=== PATIENT | female | born 1945 | race Caucasian/White ===

== ENCOUNTER 2017-02-24 09:44 | Emergency (ER) | payer MEDICARE, OTHER ==
--- NOTE | 2017-02-24 10:04 | EDM.PDOC ---
ED HPI GENERAL MEDICAL PROBLEM - General Chief Complaint: Upper Extremity Injury/Pain Stated Complaint: [id number] DID SOMETHING TO ARM Time Seen by Provider: 02/24/17 09:58 Source of Information: Reports: Patient History Limitations: Reports: No Limitations - History of Present Illness INITIAL COMMENTS - FREE TEXT/NARRATIVE: 71 yo white female c/o left elbow and left forearm pain since last night when she was placing a tote on shelf that fell forward onto forearm @ 5pm yesterday. Pt. states she applied icyhot to area. Onset: Today Onset Date: 02/23/17 Duration: Hour(s): Location: Reports: Upper Extremity, Left (elbow) Quality: Reports: Ache Severity: Mild Improves with: Reports: Rest Worsens with: Reports: Movement Context: Reports: Trauma Associated Symptoms: Reports: No Other Symptoms - Related Data Allergies Allergy/AdvReac Type Severity Reaction Status Date / Time No Known Allergies Allergy Verified 02/24/17 09:51 Home Meds: Home Meds Acetaminophen [Tylenol Extra Strength] 500 mg PO BID 02/24/17 [History] Amiodarone [Cordarone] 200 mg PO DAILY 02/24/17 [History] Atenolol 75 mg PO DAILY 02/24/17 [History] Budesonide/Formoterol Fumarate [Symbicort 80-4.5 Mcg Inhaler] 1 puff INH DAILY 02/24/17 [History] Cholecalciferol (Vitamin D3) [Vitamin D3] 2,000 unit PO BID 02/24/17 [History] Diltiazem HCl [Cartia Xt] 120 mg PO DAILY 02/24/17 [History] Fish Oil/[place]-3 Fatty Acids [Fish Oil 1,000 MG] 1,400 mg PO DAILY 02/24/17 [ History] Fluticasone Propionate [Flonase] 50 mcg IVET DAILY 02/24/17 [History] Furosemide 20 mg PO DAILY 02/24/17 [History] Losartan [Cozaar] 50 mg PO DAILY 02/24/17 [History] Multivitamin [Daily Multiple Vitamin] 1 tab PO DAILY 02/24/17 [History] Potassium Chloride [Klor-Con M20] 20 meq PO DAILY 02/24/17 [History] Rivaroxaban [Xarelto] 20 mg PO DAILY 02/24/17 [History] Spironolactone [Aldactone] 25 mg PO DAILY 02/24/17 [History] atorvaSTATin [Lipitor] 20 mg PO DAILY 02/24/17 [History] Social & Family History - Tobacco Use Smoking Status *Q: Never Smoker - Caffeine Use Caffeine Use: Reports: Coffee, Tea - Recreational Drug Use Recreational Drug Use: No Review of Systems - Review of Systems Review Of Systems: See Below Constitutional: Reports: No Symptoms Eyes: Reports: No Symptoms Ears: Reports: No Symptoms Nose: Reports: No Symptoms Mouth/Throat: Reports: No Symptoms Respiratory: Reports: No Symptoms Cardiovascular: Reports: No Symptoms GI/Abdominal: Reports: No Symptoms Genitourinary: Reports: No Symptoms Musculoskeletal: Reports: Muscle Pain (left forearm) Skin: Reports: No Symptoms Neurological: Reports: No Symptoms Psychiatric: Reports: No Symptoms ED EXAM, GENERAL - Physical Exam Exam: See Below Exam Limited By: No Limitations General Appearance: Alert, WD/WN, No Apparent Distress Eye Exam: Bilateral Eye: PERRL Ears: Normal External Exam Nose: Normal Inspection Throat/Mouth: Normal Inspection Head: Atraumatic Neck: Normal Inspection Respiratory/Chest: No Respiratory Distress Cardiovascular: Normal Peripheral Pulses Peripheral Pulses: 2+: Radial (L), Radial (R) Back Exam: Normal Inspection Extremities: Normal Inspection, Normal Range of Motion, Other (left proximal ventral forearm muscle tenderness w/o swelling and no bruising) Neurological: Alert, Oriented, CN II-XII Intact, Normal Cognition Psychiatric: Normal Affect Skin Exam: Warm, Dry Lymphatic: No Adenopathy Course - Vital Signs Last Recorded V/S: Last Vital Signs Temp 35.3 C 02/24/17 09:51 Pulse 60 02/24/17 09:51 Resp 18 02/24/17 09:51 BP 122/56 L 02/24/17 09:51 Pulse Ox 96 02/24/17 09:51 - Orders/Labs/Meds Orders: Active Orders 24 hr Category Date Time Status Elbow 2V Lt [CR] Urgent Exams 02/24/17 09:58 Taken Departure - Departure Time of Disposition: 10:17 Disposition: Home, Self-Care 01 Condition: Good Clinical Impression: Muscle contusion - Discharge Information Forms: ED Department Discharge Additional Instructions: Rest Apply Ice Pack to area TID X 15 mins. For Pain: Use otc TYLENOL ES 500mg QID as needed OR ADVIL 400mg TID w/ food F/U w/ PCP - My Orders Last 24 Hours: My Active Orders 02/24/17 09:58 Elbow 2V Lt [CR] Urgent - Assessment/Plan Last 24 Hours: My Active Orders 02/24/17 09:58 Elbow 2V Lt [CR] Urgent
[2017-02-24] MEDS ORDERED: cloNIDine 0.1 MG Tab PO ONE (10:21)
== END 2017-02-24 10:32 | disposition home or self-care (01) ==
LOC: DL.ED 09:44
DX: S50.12XA Contusion of left forearm, initial encounter (principal); Z79.899 Other long term (current) drug therapy; W20.8XXA Other cause of strike by thrown, projected or falling object, initial encounter
CPT/HCPCS: 73070-LT; 99283

== ENCOUNTER 2017-08-16 12:11 | Inpatient (IN) | payer MEDICARE, OTHER ==
[2017-08-16] MEDS ORDERED: Acetaminophen 500 MG Tab PO PRN (12:51)
[2017-08-16] MEDS ORDERED: Albuterol/Ipratropium 3.0-0.5 MG/3 ML Neb Soln NEB PRN (12:59)
--- NOTE | 2017-08-16 13:02 | PCM.HP ---
H&P History of Present Illness - General Date of Service: 08/16/17 Source of Information: Patient - History of Present Illness Initial Comments - Free Text/Narative: 72 yo with ho cad, diastolic chf, dm, copd presented with cough, subjective fever, sick contact: daughter no associated cp symptoms started 3 days TABLE [employer] went to see PMD - noted to have infiltrate has mild edema, not worse lately - Related Data Allergies/Adverse Reactions: Allergies Allergy/AdvReac Type Severity Reaction Status Date / Time No Known Allergies Allergy Verified 08/16/17 12:25 Home Medications: Home Meds Acetaminophen [Tylenol Extra Strength] 500 mg PO BID PRN 02/24/17 [History] Amiodarone [Cordarone] 200 mg PO DAILY 02/24/17 [History] Budesonide/Formoterol Fumarate [Symbicort 80-4.5 Mcg Inhaler] 2 puff INH BID [History] Cholecalciferol (Vitamin D3) [Vitamin D3] 2,000 unit PO BID 02/24/17 [History] Diltiazem HCl [Cartia Xt] 120 mg PO DAILY 02/24/17 [History] Fish Oil/[place]-3 Fatty Acids [Fish Oil 1,000 MG] 1,000 mg PO DAILY 02/24/17 [ History] Fluticasone Propionate [Flonase] 50 mcg IVET DAILY 02/24/17 [History] Losartan [Cozaar] 50 mg PO DAILY 02/24/17 [History] Multivitamin [Daily Multiple Vitamin] 1 tab PO DAILY 02/24/17 [History] RX: Atenolol 75 mg PO DAILY 02/24/17 [History] RX: Furosemide 20 mg PO DAILY 02/24/17 [History] RX: Potassium Chloride [Klor-Con M20] 20 meq PO DAILY 02/24/17 [History] RX: Spironolactone [Aldactone] 25 mg PO DAILY 02/24/17 [History] RX: atorvaSTATin [Lipitor] 20 mg PO DAILY 02/24/17 [History] Rivaroxaban [Xarelto] 20 mg PO DAILY 02/24/17 [History] Albuterol [Proair HFA] 2 puff INH DAILY PRN 08/16/17 [History] Codeine/Promethazine [Phenergan with Codeine] 5 ml PO Q6HR PRN 08/16/17 [History ] RX: Loratadine 10 mg PO DAILY 08/16/17 [History] Past Medical History HEENT History: Reports: Impaired Vision Cardiovascular History: Reports: Heart Failure, High Cholesterol, Hypertension Respiratory History: Reports: None Genitourinary History: Reports: None [employer] History: Reports: None Neurological History: Reports: None Psychiatric History: Reports: None Endocrine/Metabolic History: Reports: None Hematologic History: Reports: None Immunologic History: Reports: None Oncologic (Cancer) History: Reports: None Dermatologic History: Reports: None Social & Family History - Tobacco Use Smoking Status *Q: Never Smoker - Caffeine Use Caffeine Use: Reports: Coffee, Tea - Recreational Drug Use Recreational Drug Use: No H&P Review of Systems - Review of Systems: Review Of Systems: See Below (subjective) General: Reports: Fever HEENT: Reports: Sore Throat Pulmonary: Reports: Shortness of Breath, Cough. Denies: Wheezing, Sputum Cardiovascular: Denies: Chest Pain Gastrointestinal: Denies: Abdominal Pain Psychiatric: Denies: Confusion Exam - Exam Exam: See Below - Exam Quality Assessment: No: Supplemental Oxygen General: Alert, Oriented Neck: Supple Lungs: Normal Respiratory Effort, Crackles (basilar) Cardiovascular: Regular Rate, Regular Rhythm GI/Abdominal Exam: Normal Bowel Sounds, Soft, Non-Tender Extremities: Pedal Edema (1+ b/l) Skin: Warm, Dry Neuro Extensive - Mental Status: Alert, Oriented x3, Normal Mood/Affect Psychiatric: Alert, Normal Affect, Normal Mood - Patient Data Lab Results Last 24 hrs: Results for MALU RODRIGUEZ Danna ( ) as of 08/16/2017 12:53 Ref. Range 07/31/2017 12:01 08/16/2017 09:57 08/16/2017 09:58 BUN Latest Ref Range: 7 - 18 mg/dL 23 (H) 13 Sodium Latest Ref Range: 136 - 145 mmol/L 140 138 Potassium Latest Ref Range: 3.5 - 5.1 mmol/L 4.2 4.2 Chloride Latest Ref Range: 98 - 107 mmol/L 100 98 CO2 Latest Ref Range: 21.0 - 32.0 mmol/L 29.2 28.8 SERUM GLUCOSE Latest Ref Range: 70 - 99 mg/dL 154 (H) 226 (H) Creatinine Latest Ref Range: 0.6 - 1.0 mg/dL 1.4 (H) 1.7 (H) Calcium Latest Ref Range: 8.5 - 10.1 mg/dL 9.9 9.7 ANION GAP Latest Ref Range: 5.0 - 13.0 mmol/L 10.8 11.2 GFR Calculated Latest Units: mL/min/1.73 sq m 37 29 Results for MALU RODRIGUEZ ( ) as of 08/16/2017 12:53 Ref. Range 08/16/2017 09:58 WBC Latest Ref Range: 3.60 - 11.00 K/uL 14.78 (H) RBC Latest Ref Range: 3.80 - 5.20 M/uL 4.42 Hemoglobin Latest Ref Range: 12.0 - 16.0 g/dL 14.2 Hematocrit Latest Ref Range: 40.0 - 52.0 % 42.1 MCV Latest Ref Range: 80.0 - 100.0 fL 95.2 MCH Latest Ref Range: 26.0 - 34.0 pg 32.1 MCHC Latest Ref Range: 32.0 - 36.0 g/dL 33.7 RDW Latest Ref Range: 37.0 - 50.0 fL 45.6 Platelets Latest Ref Range: 150 - 440 K/L 208 MPV Latest Ref Range: 8.0 - 13.0 fL 9.9 Imaging Impressions Last 24 hrs: from [facility] cxr 08/16/17 IMPRESSION: 1. Heart size is borderline with Central vessels at the upper normal. 2. Basilar markings are somewhat difficult to assess. There are prominent I believe slightly increased when compared with previous study. I suspect there may be some minimal developing basilar infiltrate superimposing chronic fibrotic basilar changes. Differential would include congestion but I feel more likely minimal infiltrate. I would recommend treatment and short-term follow-up. 3. Pulmonary nodule within the RIGHT upper lobe stable and unchanged 4. Aortic ASVD and tortuosity 5. Underlying hyperinflation. 6. Degenerative changes and dextroscoliosis of the dorsal spine. Problem List Initiated/Reviewed/Updated: Yes Orders Last 24hrs: Active Orders 24 hr Category Date Time Status Glucose [Blood Glucose Check, Bedside] [RC] QIDACANDBED Care 08/16/17 12:58 Ordered RT Aerosol Therapy [RC] ASDIRECTED Care 08/16/17 12:59 Ordered BASIC METABOLIC PANEL,BMP [CHEM] AM Lab 04/20/18 05:15 Ordered CBC WITH AUTO DIFF [HEME] AM Lab 08/17/17 05:15 Ordered CULTURE BLOOD [BC] Stat Lab 08/16/17 12:58 Ordered CULTURE BLOOD [BC] Stat Lab 08/16/17 12:58 Ordered CULTURE SPUTUM + SMEAR [RM] Routine Lab 08/16/17 12:59 Ordered Acetaminophen [Tylenol Extra Strength] Med 08/16/17 12:51 Ordered 500 mg PO Q4H PRN Albuterol/Ipratropium [DuoNeb 3.0-0.5 MG/3 ML] Med 08/16/17 12:59 Ordered 3 ml NEB Q6HRRT PRN Amiodarone [Cordarone] Med 08/17/17 09:00 Ordered 200 mg PO DAILY Atenolol [Tenormin] Med 08/17/17 09:00 Ordered 75 mg PO DAILY Azithromycin [Zithromax] 500 mg Med 08/16/17 13:00 Ordered Sodium Chloride 0.9% [Normal Saline] 250 ml IV Q24H Budesonide/Formoterol Fumarate [Symbicort 80-4.5 Mcg Med 08/16/17 21:00 Ordered Inhaler] 2 puff INH BID Cholecalciferol (Vitamin D3) [Vitamin D3] Med 08/16/17 21:00 Ordered 2,000 unit PO BID Codeine/Promethazine [Phenergan with Codeine] Med 08/16/17 12:51 Ordered 5 ml PO Q6HR PRN Diltiazem [Cardizem CD] Med 08/17/17 09:00 Ordered 120 mg PO DAILY Fish Oil/[place]-3 Fatty Acids [Fish Oil 1,000 MG] Med 08/17/17 09:00 Ordered 1,000 mg PO DAILY Fluticasone Propionate [Flonase] Med 08/17/17 09:00 Ordered 0.0001 gm IVET DAILY Insulin Aspart [NovoLOG] Med 08/16/17 17:00 Ordered See Protocol SUBCUT TIDAC Loratadine [Claritin] Med 08/17/17 09:00 Ordered 10 mg PO DAILY Losartan [Cozaar] Med 08/17/17 09:00 Ordered 50 mg PO DAILY Multivitamin [Daily Multiple Vitamin] Med 08/17/17 09:00 Ordered 1 tab PO DAILY Potassium Chloride [Klor-Con M20] Med 08/17/17 09:00 Ordered 20 meq PO DAILY Rivaroxaban [Xarelto] Med 08/17/17 09:00 Ordered 20 mg PO DAILY Spironolactone [Aldactone] Med 08/17/17 09:00 Ordered 25 mg PO DAILY atorvaSTATin [Lipitor] Med 08/17/17 09:00 Ordered 20 mg PO DAILY cefTRIAXone [Rocephin] 1,000 mg Med 08/16/17 13:00 Ordered Sodium Chloride 0.9% [Normal Saline] 100 ml IV Q24H Blood Culture x2 Reflex Set [OM.PC] Stat Oth 08/16/17 12:58 Ordered Medication Orders Acetaminophen (Tylenol Extra Strength) 500 mg PO Q4H PRN PRN Reason: Pain, fever Albuterol/Ipratropium (Duoneb 3.0-0.5 Mg/3 Ml) 3 ml NEB Q6HRRT PRN PRN Reason: sob Amiodarone HCl (Cordarone) 200 mg PO DAILY [facility] Atenolol (Tenormin) 75 mg PO DAILY [facility] Atorvastatin Calcium (Lipitor) 20 mg PO DAILY [facility] Diltiazem HCl (Cardizem Cd) 120 mg PO DAILY [facility] Fluticasone Propionate (Flonase) 0.0001 gm IVET DAILY [facility] Azithromycin 500 mg/ Sodium (Chloride) 250 mls @ 250 mls/hr IV Q24H [facility] Ceftriaxone Sodium 1,000 mg/ (Sodium Chloride) 100 mls @ 200 mls/hr IV Q24H [facility] Insulin Aspart (Novolog) 0 unit SUBCUT TIDAC [facility]; Protocol Loratadine (Claritin) 10 mg PO DAILY [facility] Losartan Potassium (Cozaar) 50 mg PO DAILY [facility] Non-Formulary Medication (Budesonide/Formoterol Fumarate [Symbicort 80-4.5 Mcg Inhaler]) 2 puff INH BID [facility] Non-Formulary Medication (Cholecalciferol (Vitamin D3) [Vitamin D3]) 2,000 unit PO BID [facility] Non-Formulary Medication (Fish Oil/[place]-3 Fatty Acids [Fish Oil 1,000 Mg]) 1, 000 mg PO DAILY [facility] Non-Formulary Medication (Multivitamin [Daily Multiple Vitamin]) 1 tab PO DAILY [facility] Non-Formulary Medication (Potassium Chloride [Klor-Con M20]) 20 meq PO DAILY [facility] Non-Formulary Medication (Rivaroxaban [Xarelto]) 20 mg PO DAILY [facility] Promethazine HCl/Codeine (Phenergan With Codeine) 5 ml PO Q6HR PRN PRN Reason: Cough Spironolactone (Aldactone) 25 mg PO DAILY [facility] Assessment/Plan Comment:: 1. cough, fever, leukocytosis R. LL pneumonia will obtain BC, sputum cx start azithro, rocephin 2. Acute exacerbation of diastolic chf last echo in 2016 There is mild to moderate concentric left ventricular hypertrophy. Ejection Fraction = 55-60%. The left atrium is moderately dilated. The right atrium is moderately dilated. There is mild to moderate mitral regurgitation. There is mild tricuspid regurgitation. Right ventricular systolic pressure is elevated at 40-50mmHg. will increase lasix to IV BID for a few doses follow elytes and renal fx. 3. KRISTINE with CKD III follow with increased diuretics 4. Afib appears in NS cont amiodarone cont anticoagulation with Xarelto 5. COPD no apparent exacerbation cont symbicort duoneb prn 6. DVT prophylaxis with Xarelto
[2017-08-16] MEDS ORDERED: Zolpidem 5 MG Tab PO PRN (13:36)
[2017-08-16] MEDS: Furosemide 20 MG/2 ML VIAL IVPUSH SCH (14:02)
[2017-08-16] MEDS: Azithromycin 500 MG in Sodium Chloride 0.9% 250 ML IV SCH (14:02)
[2017-08-16] MEDS: cefTRIAXone 1 GM Vial IVPUSH SCH (14:02)
[2017-08-16] MEDS: Codeine/Promethazine 10-6.25 MG/5 ML Syrup 5 ML UD Cup PO PRN ×2 (14:03→23:48)
[2017-08-16] MEDS: Sodium Chloride 0.9% 10 ML Syringe FLUSH PRN ×2 (14:03→20:53)
[2017-08-16] MEDS: Insulin Aspart 100 Units/ML 3 ML Pen SUBCUT SCH (17:46)
[2017-08-16] MEDS: SYMBICORT INH SCH (20:43)
[2017-08-16] MEDS: CHOLECALCIFEROL 2000 UNIT PO SCH (20:44)
[2017-08-16] MEDS: Rivaroxaban 10 MG Tab PO SCH (21:43)
[2017-08-16] MEDS: atorvaSTATin 20 MG Tab PO SCH (21:43)
[2017-08-17 06:42] LABS: ANION GAP 12.4
[2017-08-17] MEDS: SYMBICORT INH SCH ×2 (08:50→17:33)
[2017-08-17] MEDS: FISH OIL PO SCH (08:50)
[2017-08-17] MEDS: OMEGA PO SCH (08:50)
[2017-08-17] MEDS: CHOLECALCIFEROL 2000 UNIT PO SCH ×2 (08:50→20:52)
[2017-08-17] MEDS: FATTY ACIDS PO SCH (08:50)
[2017-08-17] MEDS: Spironolactone 25 MG Tab PO SCH (08:51)
[2017-08-17] MEDS: Potassium Chloride 10 MEQ Tab.ER PO SCH (08:51)
[2017-08-17] MEDS: Losartan 50 MG Tab PO SCH (08:51)
[2017-08-17] MEDS: Furosemide 20 MG/2 ML VIAL IVPUSH SCH ×2 (08:51→14:13)
[2017-08-17] MEDS: Multivitamins,Therapeutic Tab PO SCH (08:51)
[2017-08-17] MEDS: Loratadine 10 MG Tab PO SCH (08:51)
[2017-08-17] MEDS: Amiodarone 200 MG Tab PO SCH (08:51)
[2017-08-17] MEDS: Fluticasone Propionate Nasal Spray 16 GM Bottle NAS SCH (08:52)
[2017-08-17] MEDS: Insulin Aspart 100 Units/ML 3 ML Pen SUBCUT SCH (08:54)
--- NOTE | 2017-08-17 10:05 | PCM.PN ---
- General Info Date of Service: 08/17/17 Subjective Update: Feeling better, voice is still not normal, Mild shortness of breath only. Had low-grade temperature overnight. Still on oxygen. On fluid restriction. Symptoms started prior to admission. They are improving. Still coughing but no sputum production. Functional Status: Reports: Pain Controlled - Review of Systems General: Reports: Fever (Low-grade) Pulmonary: Reports: Shortness of Breath (Mild), Cough (Nonproductive) Cardiovascular: Denies: Chest Pain Gastrointestinal: Denies: Abdominal Pain Genitourinary: Denies: Dysuria Neurological: Denies: Confusion Psychiatric: Denies: Depression - Patient Data Vitals - Most Recent: Last Vital Signs Temp 36.8 C 08/17/17 07:00 Pulse 55 L 08/17/17 07:00 Resp 16 08/17/17 07:00 BP 108/71 08/17/17 08:51 Pulse Ox 94 L 08/17/17 07:00 Weight - Most Recent: 90.718 kg I&O - Last 24 Hours: Intake & Output 08/16/17 08/17/17 08/17/17 22:59 06:59 14:59 Intake Total 250 300 240 Output Total 100 Balance 250 200 240 Lab Results Last 24 Hours: Laboratory Results - last 24 hr 08/16/17 08/17/17 08/17/17 Range/Units 16:52 05:35 05:35 WBC 8.2 (5.0-10.0) 10^3/uL RBC 3.97 L (4.2-5.4) 10^6/uL Hgb 12.8 (12.0-16.0) g/dL Hct 38.8 (37.0-47.0) % MCV 97.7 (80-100) fL MCH 32.2 (27.0-34.0) pg MCHC 33.0 (33.0-35.0) g/dL Plt Count 140 L (150-450) 10^3/uL Neut % (Auto) 64.0 (42.2-75.2) % Lymph % (Auto) 21.6 (20.5-50.1) % [place] % (Auto) 11.6 H (2-8) % Eos % (Auto) 2.6 (1.0-3.0) % Baso % (Auto) 0.2 (0.0-1.0) % Sodium 138 (135-145) mmol/L Potassium 3.4 L (3.6-5.0) mmol/L Chloride 100 L (101-111) mmol/L Carbon Dioxide 29.0 (21.0-31.0) mmol/L Anion Gap 12.4 BUN 19 H (7-18) mg/dL Creatinine 1.3 (0.6-1.3) mg/dL Est Cr Clr Drug Dosing 37.48 mL/min Estimated GFR (MDRD) 40 Glucose 126 H (74-105) mg/dL POC Glucose 118 H (83-110) mg/dl Calcium 9.0 (8.4-10.2) mg/dl Med Orders - Current: Current Medications Acetaminophen (Tylenol Extra Strength) 500 mg PO Q4H PRN PRN Reason: Pain, fever Albuterol/Ipratropium (Duoneb 3.0-0.5 Mg/3 Ml) 3 ml NEB Q6HRRT PRN PRN Reason: sob Amiodarone HCl (Cordarone) 200 mg PO DAILY [facility] Last Admin: 08/17/17 08:51 Dose: 200 mg Atenolol (Tenormin) 75 mg PO DAILY [facility] Atorvastatin Calcium (Lipitor) 20 mg PO BEDTIME [facility] Last Admin: 08/16/17 21:43 Dose: 20 mg Ceftriaxone Sodium (Rocephin) 1 gm IVPUSH Q24H [facility] Last Admin: 08/16/17 14:02 Dose: 1 gm Diltiazem HCl (Cardizem Cd) 120 mg PO DAILY [facility] Fluticasone Propionate (Flonase) 0 gm IVET DAILY [facility] Last Admin: 08/17/17 08:52 Dose: 2 spray Furosemide (Lasix) 20 mg IVPUSH BIDDIURETIC [facility] Last Admin: 08/17/17 08:51 Dose: 20 mg Azithromycin 500 mg/ Sodium (Chloride) 250 mls @ 250 mls/hr IV Q24H [facility] Last Infusion: 08/16/17 15:48 Dose: Infused Loratadine (Claritin) 10 mg PO DAILY [facility] Last Admin: 08/17/17 08:51 Dose: 10 mg Losartan Potassium (Cozaar) 50 mg PO DAILY [facility] Last Admin: 08/17/17 08:51 Dose: 50 mg Multivitamins (Thera) 1 each PO DAILY [facility] Last Admin: 08/17/17 08:51 Dose: 1 each Nf Symbicort 80-4.5 (Mcg InhOwn Med) 0 puff INH BIDRT [facility] Last Admin: 08/17/17 08:50 Dose: 2 puff Nf Cholecalciferol ( Vitamin D3)2,000 UnitOwn Med 0 unit PO BID [facility] Last Admin: 08/17/17 08:50 Dose: 1 unit Nf Fish Oil/[place]-3 Fatty Acids 1,200 Mg Own Med 0 mg PO DAILY [facility] Last Admin: 08/17/17 08:50 Dose: 1 mg Potassium Chloride (Klor-Con 10) 20 meq PO DAILY@0800 [facility] Last Admin: 08/17/17 08:51 Dose: 20 meq Potassium Chloride (Klor-Con 10) 20 meq PO ONETIME ONE Stop: 08/17/17 16:01 Promethazine HCl/Codeine (Phenergan With Codeine) 5 ml PO Q6HR PRN PRN Reason: Cough Last Admin: 08/16/17 23:48 Dose: 5 ml Rivaroxaban (Xarelto) 20 mg PO BEDTIME [facility] Last Admin: 08/16/17 21:43 Dose: 20 mg Sodium Chloride (Saline Flush) 10 ml FLUSH ASDIRECTED PRN PRN Reason: Keep Vein Open Last Admin: 08/16/17 20:53 Dose: 10 ml Spironolactone (Aldactone) 25 mg PO DAILY [facility] Last Admin: 08/17/17 08:51 Dose: 25 mg Zolpidem Tartrate (Ambien) 5 mg PO BEDTIME PRN PRN Reason: Sleep Discontinued Medications Insulin Aspart (Novolog) 0 unit SUBCUT TIDAC [facility]; Protocol Last Admin: 08/17/17 08:54 Dose: Not Given - Exam Quality Assessment: Supplemental Oxygen General: Alert, Oriented HEENT: EOMI Neck: Supple Lungs: Clear to Auscultation, Normal Respiratory Effort, Rhonchi (Basilar) Cardiovascular: Regular Rate, Regular Rhythm GI/Abdominal Exam: Normal Bowel Sounds, Soft, Non-Tender Extremities: No Pedal Edema - Problem List Review Problem List Initiated/Reviewed/Updated: Yes - My Orders Last 24 Hours: My Active Orders 08/16/17 12:51 Acetaminophen [Tylenol Extra Strength] 500 mg PO Q4H PRN Codeine/Promethazine [Phenergan with Codeine] 5 ml PO Q6HR PRN 08/16/17 12:58 Blood Culture x2 Reflex Set [OM.PC] Stat 08/16/17 12:59 RT Aerosol Therapy [RC] CULTURE SPUTUM + SMEAR [RM] Routine Albuterol/Ipratropium [DuoNeb 3.0-0.5 MG/3 ML] 3 ml NEB Q6HRRT PRN 08/16/17 13:35 CULTURE BLOOD [BC] Stat 08/16/17 13:36 Patient Status [ADT] Routine Oxygen Therapy [RC] PRN Up With Assistance [RC] ASDIRECTED VTE/DVT Education [RC] PER UNIT ROUTINE Vital Signs [RC] 03,07,11,15,, Sodium Chloride 0.9% [Saline Flush] 10 ml FLUSH ASDIRECTED PRN Zolpidem [Ambien] 5 mg PO BEDTIME PRN Peripheral IV Insertion Adult [OM.PC] Routine Saline Lock Insert [OM.PC] Routine Resuscitation Status Routine 08/16/17 13:37 Antiembolic Hose [OM.PC] Per Unit Routine 08/16/17 13:38 Peripheral IV Care [RC] 08,20 08/16/17 13:40 CULTURE BLOOD [BC] Stat 08/16/17 14:00 Azithromycin [Zithromax] 500 mg Sodium Chloride 0.9% [Normal Saline] 250 ml IV Q24H Furosemide [Lasix] 20 mg IVPUSH BIDDIURETIC cefTRIAXone [Rocephin] 1 gm IVPUSH Q24H 08/16/17 21:00 Budesonide/Formoterol Fumarate [Symbicort 80-4.5 Mcg Inhaler] 0 puff INH BIDRT Cholecalciferol (Vitamin D3) [Vitamin D3] 0 unit PO BID 08/16/17 21:40 Rivaroxaban [Xarelto] 20 mg PO BEDTIME atorvaSTATin [Lipitor] 20 mg PO BEDTIME 08/16/17 Dinner Regular Diet [DIET] 08/17/17 08:00 Potassium Chloride [Klor-Con 10] 20 meq PO DAILY@0800 08/17/17 09:00 Amiodarone [Cordarone] 200 mg PO DAILY Atenolol [Tenormin] 75 mg PO DAILY Diltiazem [Cardizem CD] 120 mg PO DAILY Fish Oil/[place]-3 Fatty Acids [Fish Oil 1,000 MG] 0 mg PO DAILY Fluticasone Propionate [Flonase] 0 gm IVET DAILY Loratadine [Claritin] 10 mg PO DAILY Losartan [Cozaar] 50 mg PO DAILY Multivitamins,Therapeutic [Thera] 1 each PO DAILY Spironolactone [Aldactone] 25 mg PO DAILY 08/17/17 16:00 Potassium Chloride [Klor-Con 10] 20 meq PO ONETIME ONE 08/18/17 05:15 BASIC METABOLIC PANEL,BMP [CHEM] AM CBC WITH AUTO DIFF [HEME] AM - Plan Plan:: 1. cough, fever, leukocytosis R. LL pneumonia with acute hypoxemic respiratory failure BCx pending sputum cx: Pending Treat empirically with kalyanithvicky jaffehin 2. Acute exacerbation of diastolic chf last echo in 2015 There is mild to moderate concentric left ventricular hypertrophy. Ejection Fraction = 55-60%. The left atrium is moderately dilated. The right atrium is moderately dilated. There is mild to moderate mitral regurgitation. There is mild tricuspid regurgitation. Right ventricular systolic pressure is elevated at 40-50mmHg. We will continue with increased lasix to IV BID follow elytes and renal fx. 3. KRISTINE with CKD III follow with increased diuretics 4. Afib appears in NS cont amiodarone cont anticoagulation with Xarelto 5. COPD no apparent exacerbation - no wheezing cont symbicort duoneb prn 6. Acute hypoxemic respiratory failure Supplement oxygen as needed We'll try to taper off oxygen 7. DVT prophylaxis with Xarelto Discussed with family
[2017-08-17] MEDS: Diltiazem 120 MG Cap.CD PO SCH (10:38)
[2017-08-17] MEDS: Atenolol 25 MG Tab PO SCH (10:38)
[2017-08-17] MEDS: Codeine/Promethazine 10-6.25 MG/5 ML Syrup 5 ML UD Cup PO PRN (11:03)
[2017-08-17] MEDS: Azithromycin 500 MG in Sodium Chloride 0.9% 250 ML IV SCH (14:13)
[2017-08-17] MEDS: cefTRIAXone 1 GM Vial IVPUSH SCH (14:13)
[2017-08-17] MEDS: Albuterol/Ipratropium 3.0-0.5 MG/3 ML Neb Soln NEB SCH ×2 (15:10→20:56)
[2017-08-17] MEDS ORDERED: Potassium Chloride 10 MEQ Tab.ER PO ONE (16:00)
[2017-08-17] MEDS: atorvaSTATin 20 MG Tab PO SCH (20:53)
[2017-08-17] MEDS: Rivaroxaban 10 MG Tab PO SCH (20:53)
[2017-08-17] MEDS: Sodium Chloride 0.9% 10 ML Syringe FLUSH PRN (21:12)
[2017-08-18] MEDS: Codeine/Promethazine 10-6.25 MG/5 ML Syrup 5 ML UD Cup PO PRN ×3 (00:11→23:11)
[2017-08-18] MEDS: SYMBICORT INH SCH ×2 (06:26→20:18)
[2017-08-18 06:35] LABS: ANION GAP 12.9
[2017-08-18] MEDS: Albuterol/Ipratropium 3.0-0.5 MG/3 ML Neb Soln NEB SCH ×3 (07:11→20:17)
[2017-08-18] MEDS: Diltiazem 120 MG Cap.CD PO SCH (09:01)
[2017-08-18] MEDS: Loratadine 10 MG Tab PO SCH (09:01)
[2017-08-18] MEDS: Amiodarone 200 MG Tab PO SCH (09:01)
[2017-08-18] MEDS: Atenolol 25 MG Tab PO SCH (09:02)
[2017-08-18] MEDS: Spironolactone 25 MG Tab PO SCH (09:02)
[2017-08-18] MEDS: Multivitamins,Therapeutic Tab PO SCH (09:02)
[2017-08-18] MEDS: Losartan 50 MG Tab PO SCH (09:02)
[2017-08-18] MEDS: Potassium Chloride 10 MEQ Tab.ER PO SCH (09:03)
[2017-08-18] MEDS: CHOLECALCIFEROL 2000 UNIT PO SCH ×2 (09:05→21:03)
[2017-08-18] MEDS: Fluticasone Propionate Nasal Spray 16 GM Bottle NAS SCH (09:05)
[2017-08-18] MEDS: FATTY ACIDS PO SCH (09:06)
[2017-08-18] MEDS: OMEGA PO SCH (09:06)
[2017-08-18] MEDS: FISH OIL PO SCH (09:06)
[2017-08-18] MEDS: Furosemide 20 MG/2 ML VIAL IVPUSH SCH (09:07)
--- NOTE | 2017-08-18 10:11 | PCM.PN ---
- General Info Date of Service: 08/18/17 Subjective Update: Feeling better, voice is still not normal, Mild shortness of breath only. off oxygen. On fluid restriction. Symptoms started prior to admission. They are improving. Still coughing but no sputum production. Functional Status: Reports: Pain Controlled, Tolerating Diet - Review of Systems General: Denies: Fever Pulmonary: Reports: Shortness of Breath (Improving) Cardiovascular: Denies: Chest Pain Gastrointestinal: Denies: Abdominal Pain Neurological: Denies: Confusion - Patient Data Vitals - Most Recent: Last Vital Signs Temp 35.9 C 08/18/17 07:00 Pulse 58 L 08/18/17 09:02 Resp 18 08/18/17 07:00 BP 111/49 L 08/18/17 09:02 Pulse Ox 96 08/18/17 07:13 Weight - Most Recent: 90.991 kg I&O - Last 24 Hours: Intake & Output 08/17/17 08/18/17 08/18/17 22:59 06:59 14:59 Intake Total 550 90 Output Total 100 350 Balance 450 -260 Lab Results Last 24 Hours: Laboratory Results - last 24 hr 08/18/17 08/18/17 Range/Units 05:40 05:40 WBC 7.0 (5.0-10.0) 10^3/uL RBC 3.87 L (4.2-5.4) 10^6/uL Hgb 12.3 (12.0-16.0) g/dL Hct 37.8 (37.0-47.0) % MCV 97.7 (80-100) fL MCH 31.8 (27.0-34.0) pg MCHC 32.5 L (33.0-35.0) g/dL Plt Count 147 L (150-450) 10^3/uL Neut % (Auto) 55.7 (42.2-75.2) % Lymph % (Auto) 27.4 (20.5-50.1) % [place] % (Auto) 12.6 H (2-8) % Eos % (Auto) 4.0 H (1.0-3.0) % Baso % (Auto) 0.3 (0.0-1.0) % Sodium 138 (135-145) mmol/L Potassium 3.9 (3.6-5.0) mmol/L Chloride 102 (101-111) mmol/L Carbon Dioxide 27.0 (21.0-31.0) mmol/L Anion Gap 12.9 BUN 24 H (7-18) mg/dL Creatinine 1.4 H (0.6-1.3) mg/dL Est Cr Clr Drug Dosing 34.80 mL/min Estimated GFR (MDRD) 37 Glucose 116 H (74-105) mg/dL Calcium 9.1 (8.4-10.2) mg/dl Joao Results Last 24 Hours: Microbiology 08/17/17 15:25 Gram Stain - Final Sputum - Expectorated 08/16/17 13:40 Aerobic Blood Culture - Preliminary Blood - Venous - Lab Draw NO GROWTH AFTER 1 DAY Anaerobic Blood Culture - Preliminary NO GROWTH AFTER 1 DAY 08/16/17 13:35 Aerobic Blood Culture - Preliminary Blood - Venous NO GROWTH AFTER 1 DAY Anaerobic Blood Culture - Preliminary NO GROWTH AFTER 1 DAY Med Orders - Current: Current Medications Acetaminophen (Tylenol Extra Strength) 500 mg PO Q4H PRN PRN Reason: Pain, fever Albuterol/Ipratropium (Duoneb 3.0-0.5 Mg/3 Ml) 3 ml NEB Q6HRRT PRN PRN Reason: sob Albuterol/Ipratropium (Duoneb 3.0-0.5 Mg/3 Ml) [address] [facility] Last Admin: 08/18/17 07:11 Dose: 3 ml Amiodarone HCl (Cordarone) [address] [facility] Last Admin: 08/18/17 09:01 Dose: 200 mg Atenolol (Tenormin) [address] [facility] Last Admin: 08/18/17 09:02 Dose: 75 mg Atorvastatin Calcium (Lipitor) [address] [facility] Last Admin: 08/17/17 20:53 Dose: 20 mg Ceftriaxone Sodium (Rocephin) [address] [facility] Last Admin: 08/17/17 14:13 Dose: 1 gm Diltiazem HCl (Cardizem Cd) [address] [facility] Last Admin: 08/18/17 09:01 Dose: 120 mg Fluticasone Propionate (Flonase) [address] [facility] Last Admin: 08/18/17 09:05 Dose: 1 spray Furosemide (Lasix) [address] [facility] Azithromycin 500 mg/ Sodium (Chloride) 250 mls @ 250 mls/hr IV Q24H [facility] Last Admin: 08/17/17 14:13 Dose: 100 mls/hr Loratadine (Claritin) [address] [facility] Last Admin: 08/18/17 09:01 Dose: 10 mg Losartan Potassium (Cozaar) [address] [facility] Last Admin: 08/18/17 09:02 Dose: 50 mg Multivitamins (Thera) [address] [facility] Last Admin: 08/18/17 09:02 Dose: 1 each Nf Symbicort 80-4.5 (Mcg InhOwn Med) [address] [facility] Last Admin: 08/18/17 06:26 Dose: 2 puff Nf Cholecalciferol ( Vitamin D3)2,000 UnitOwn Med [address] [facility] Last Admin: 08/18/17 09:05 Dose: 1 unit Nf Fish Oil/[place]-3 Fatty Acids 1,200 Mg Own Med [address] [facility] Last Admin: 08/18/17 09:06 Dose: 1 mg Potassium Chloride (Klor-Con 10) 20 meq PO DAILY@0800 [facility] Last Admin: 08/18/17 09:03 Dose: 20 meq Promethazine HCl/Codeine (Phenergan With Codeine) 5 ml PO Q6HR PRN PRN Reason: Cough Last Admin: 08/18/17 00:11 Dose: 5 ml Rivaroxaban (Xarelto) [address] [facility] Last Admin: 08/17/17 20:53 Dose: 20 mg Sodium Chloride (Saline Flush) 10 ml FLUSH ASDIRECTED PRN PRN Reason: Keep Vein Open Last Admin: 08/17/17 21:12 Dose: 10 ml Spironolactone (Aldactone) [address] [facility] Last Admin: 08/18/17 09:02 Dose: 25 mg Zolpidem Tartrate (Ambien) 5 mg PO BEDTIME PRN PRN Reason: Sleep Discontinued Medications Furosemide (Lasix) [address] [facility] Last Admin: 08/18/17 09:07 Dose: 20 mg Insulin Aspart (Novolog) [address] [facility]; Protocol Last Admin: 08/17/17 08:54 Dose: Not Given Potassium Chloride (Klor-Con 10) 20 meq PO ONETIME ONE Stop: 08/17/17 16:01 Last Admin: 08/17/17 17:32 Dose: 20 meq - Exam General: Alert, Oriented Lungs: Normal Respiratory Effort, Crackles (Basilar) Cardiovascular: Regular Rate, Regular Rhythm GI/Abdominal Exam: Normal Bowel Sounds, Soft, Non-Tender Extremities: No Pedal Edema - Problem List Review Problem List Initiated/Reviewed/Updated: Yes - My Orders Last 24 Hours: My Active Orders 08/17/17 10:05 RT Aerosol Therapy [RC] ASDIRECTED 08/17/17 15:00 Albuterol/Ipratropium [DuoNeb 3.0-0.5 MG/3 ML] 3 ml NEB TIDRT 08/17/17 15:25 CULTURE SPUTUM + SMEAR [RM] Routine 08/17/17 15:29 Incentive Spirometry [RT Incentive Spirometry] [RC] ASDIRECTED 08/17/17 15:30 Chest Physiotherapy [RT Chest Physiotherapy] [RC] ASDIRECTED 08/18/17 14:00 Furosemide [Lasix] 20 mg PO BIDDIURETIC 08/19/17 05:15 BASIC METABOLIC PANEL,BMP [CHEM] AM CBC WITH AUTO DIFF [HEME] AM - Plan Plan:: 1. cough, fever, leukocytosis R. LL pneumonia with acute hypoxemic respiratory failure BCx pending sputum cx: Pending Treat empirically with azithro, rocephin 2. Acute exacerbation of diastolic chf last echo in 2016 There is mild to moderate concentric left ventricular hypertrophy. Ejection Fraction = 55-60%. The left atrium is moderately dilated. The right atrium is moderately dilated. There is mild to moderate mitral regurgitation. There is mild tricuspid regurgitation. Right ventricular systolic pressure is elevated at 40-50mmHg. We will continue with increased lasix but we will change from IV to oral bid follow elytes and renal fx. 3. KRISTINE with CKD III follow with increased diuretics 4. Afib appears in NS cont amiodarone cont anticoagulation with Xarelto 5. COPD no apparent exacerbation - no wheezing cont symbicort duoneb prn 6. Acute hypoxemic respiratory failure Supplement oxygen as needed 7. DVT prophylaxis with Xarelto
[2017-08-18] MEDS: Azithromycin 500 MG in Sodium Chloride 0.9% 250 ML IV SCH (13:19)
[2017-08-18] MEDS: Furosemide 20 MG Tab PO SCH (14:33)
[2017-08-18] MEDS: cefTRIAXone 1 GM Vial IVPUSH SCH (14:34)
[2017-08-18] MEDS: Sodium Chloride 0.9% 10 ML Syringe FLUSH PRN ×2 (14:35→21:34)
[2017-08-18] MEDS: atorvaSTATin 20 MG Tab PO SCH (21:04)
[2017-08-18] MEDS: Rivaroxaban 10 MG Tab PO SCH (21:04)
[2017-08-19] MEDS: SYMBICORT INH SCH ×2 (06:17→17:48)
[2017-08-19 07:13] LABS: ANION GAP 12.3
[2017-08-19] MEDS: Albuterol/Ipratropium 3.0-0.5 MG/3 ML Neb Soln NEB SCH ×3 (08:02→20:48)
[2017-08-19] MEDS: Potassium Chloride 10 MEQ Tab.ER PO SCH (08:28)
[2017-08-19] MEDS: Furosemide 20 MG Tab PO SCH ×2 (08:29→14:47)
[2017-08-19] MEDS: Diltiazem 120 MG Cap.CD PO SCH (08:29)
[2017-08-19] MEDS: Spironolactone 25 MG Tab PO SCH (08:29)
[2017-08-19] MEDS: Losartan 50 MG Tab PO SCH (08:32)
[2017-08-19] MEDS: Atenolol 25 MG Tab PO SCH (08:33)
[2017-08-19] MEDS: Loratadine 10 MG Tab PO SCH (08:34)
[2017-08-19] MEDS: Multivitamins,Therapeutic Tab PO SCH (08:34)
[2017-08-19] MEDS: Amiodarone 200 MG Tab PO SCH (08:34)
[2017-08-19] MEDS: CHOLECALCIFEROL 2000 UNIT PO SCH ×2 (08:39→20:47)
[2017-08-19] MEDS: OMEGA PO SCH (08:40)
[2017-08-19] MEDS: FATTY ACIDS PO SCH (08:40)
[2017-08-19] MEDS: FISH OIL PO SCH (08:40)
[2017-08-19] MEDS: Fluticasone Propionate Nasal Spray 16 GM Bottle NAS SCH (08:42)
--- NOTE | 2017-08-19 11:04 | PCM.PN ---
- General Info Date of Service: 08/19/17 Subjective Update: Feeling better, voice is getting back to normal, Mild shortness of breath only. Was off oxygen during the day but had to reapply during the night. On fluid restriction. Symptoms started prior to admission. They are improving. Still coughing but no sputum production. - Review of Systems General: Denies: Fever, Weakness Pulmonary: Reports: Shortness of Breath Cardiovascular: Denies: Chest Pain Gastrointestinal: Reports: Abdominal Pain Neurological: Denies: Confusion - Patient Data Vitals - Most Recent: Last Vital Signs Temp 36.4 C 08/19/17 07:00 Pulse 65 08/19/17 08:33 Resp 20 08/19/17 07:00 BP 127/56 L 08/19/17 08:33 Pulse Ox 92 L 08/19/17 08:06 Weight - Most Recent: 91.535 kg I&O - Last 24 Hours: Intake & Output 08/18/17 08/19/17 08/19/17 22:59 06:59 14:59 Intake Total 250 300 Output Total 400 300 Balance -150 300 -300 Lab Results Last 24 Hours: Laboratory Results - last 24 hr 08/19/17 08/19/17 Range/Units 06:05 06:05 WBC 5.7 (5.0-10.0) 10^3/uL RBC 3.88 L (4.2-5.4) 10^6/uL Hgb 12.2 (12.0-16.0) g/dL Hct 38.0 (37.0-47.0) % MCV 97.9 (80-100) fL MCH 31.4 (27.0-34.0) pg MCHC 32.1 L (33.0-35.0) g/dL Plt Count 158 (150-450) 10^3/uL Neut % (Auto) 54.2 (42.2-75.2) % Lymph % (Auto) 27.3 (20.5-50.1) % [place] % (Auto) 13.3 H (2-8) % Eos % (Auto) 4.7 H (1.0-3.0) % Baso % (Auto) 0.5 (0.0-1.0) % Add Manual Diff Yes Neutrophils % (Manual) 49 (42-75) % Band Neutrophils % 2 % Lymphocytes % (Manual) 37 (20-50) % Monocytes % (Manual) 6 (2-8) % Eosinophils % (Manual) 6 H (1-3) % Sodium 140 (135-145) mmol/L Potassium 4.3 (3.6-5.0) mmol/L Chloride 105 (101-111) mmol/L Carbon Dioxide 27.0 (21.0-31.0) mmol/L Anion Gap 12.3 BUN 19 H (7-18) mg/dL Creatinine 1.3 (0.6-1.3) mg/dL Est Cr Clr Drug Dosing 37.48 mL/min Estimated GFR (MDRD) 40 Glucose 121 H (74-105) mg/dL Calcium 9.1 (8.4-10.2) mg/dl Joao Results Last 24 Hours: Microbiology 08/16/17 13:40 Aerobic Blood Culture - Preliminary Blood - Venous - Lab Draw NO GROWTH AFTER 2 DAYS Anaerobic Blood Culture - Preliminary NO GROWTH AFTER 2 DAYS 08/16/17 13:35 Aerobic Blood Culture - Preliminary Blood - Venous NO GROWTH AFTER 2 DAYS Anaerobic Blood Culture - Preliminary NO GROWTH AFTER 2 DAYS Med Orders - Current: Current Medications Acetaminophen (Tylenol Extra Strength) 500 mg PO Q4H PRN PRN Reason: Pain, fever Albuterol/Ipratropium (Duoneb 3.0-0.5 Mg/3 Ml) 3 ml NEB Q6HRRT PRN PRN Reason: sob Albuterol/Ipratropium (Duoneb 3.0-0.5 Mg/3 Ml) 3 ml NEB TIDRT [facility] Last Admin: 08/19/17 08:02 Dose: 3 ml Amiodarone HCl (Cordarone) 200 mg PO DAILY [facility] Last Admin: 08/19/17 08:34 Dose: 200 mg Atenolol (Tenormin) 75 mg PO DAILY [facility] Last Admin: 08/19/17 08:33 Dose: 75 mg Atorvastatin Calcium (Lipitor) 20 mg PO BEDTIME [facility] Last Admin: 08/18/17 21:04 Dose: 20 mg Ceftriaxone Sodium (Rocephin) 1 gm IVPUSH Q24H [facility] Last Admin: 08/18/17 14:34 Dose: 1 gm Diltiazem HCl (Cardizem Cd) 120 mg PO DAILY [facility] Last Admin: 08/19/17 08:29 Dose: 120 mg Fluticasone Propionate (Flonase) 0 gm IVET DAILY [facility] Last Admin: 08/19/17 08:42 Dose: 1 spray Furosemide (Lasix) 20 mg PO BIDDIURETIC [facility] Last Admin: 08/19/17 08:29 Dose: 20 mg Azithromycin 500 mg/ Sodium (Chloride) 250 mls @ 250 mls/hr IV Q24H [facility] Last Admin: 08/18/17 13:19 Dose: 100 mls/hr Loratadine (Claritin) 10 mg PO DAILY [facility] Last Admin: 08/19/17 08:34 Dose: 10 mg Losartan Potassium (Cozaar) 50 mg PO DAILY [facility] Last Admin: 08/19/17 08:32 Dose: 50 mg Multivitamins (Thera) 1 each PO DAILY [facility] Last Admin: 08/19/17 08:34 Dose: 1 each Nf Symbicort 80-4.5 (Mcg InhOwn Med) 0 puff INH BIDRT [facility] Last Admin: 08/19/17 06:17 Dose: 2 puff Nf Cholecalciferol ( Vitamin D3)2,000 UnitOwn Med 0 unit PO BID [facility] Last Admin: 08/19/17 08:39 Dose: 2,000 unit Nf Fish Oil/[place]-3 Fatty Acids 1,200 Mg Own Med 0 mg PO DAILY [facility] Last Admin: 08/19/17 08:40 Dose: 1,200 mg Potassium Chloride (Klor-Con 10) 20 meq PO DAILY@0800 [facility] Last Admin: 08/19/17 08:28 Dose: 20 meq Promethazine HCl/Codeine (Phenergan With Codeine) 5 ml PO Q6HR PRN PRN Reason: Cough Last Admin: 08/18/17 23:11 Dose: 5 ml Rivaroxaban (Xarelto) 20 mg PO BEDTIME [facility] Last Admin: 08/18/17 21:04 Dose: 20 mg Senna/Docusate Sodium (Senna Plus) 1 tab PO BID [facility] Last Admin: 08/19/17 08:33 Dose: 1 tab Sodium Chloride (Saline Flush) 10 ml FLUSH ASDIRECTED PRN PRN Reason: Keep Vein Open Last Admin: 08/18/17 21:34 Dose: 10 ml Spironolactone (Aldactone) 25 mg PO DAILY [facility] Last Admin: 08/19/17 08:29 Dose: 25 mg Zolpidem Tartrate (Ambien) 5 mg PO BEDTIME PRN PRN Reason: Sleep Discontinued Medications Furosemide (Lasix) 20 mg IVPUSH BIDDIURETIC [facility] Last Admin: 08/18/17 09:07 Dose: 20 mg Insulin Aspart (Novolog) 0 unit SUBCUT TIDAC [facility]; Protocol Last Admin: 08/17/17 08:54 Dose: Not Given Potassium Chloride (Klor-Con 10) 20 meq PO ONETIME ONE Stop: 08/17/17 16:01 Last Admin: 08/17/17 17:32 Dose: 20 meq - Exam Quality Assessment: Supplemental Oxygen General: Alert, Oriented Lungs: [place] (Basilar) Cardiovascular: Regular Rate, Regular Rhythm GI/Abdominal Exam: Normal Bowel Sounds, Soft, Non-Tender Extremities: No Pedal Edema - Problem List Review Problem List Initiated/Reviewed/Updated: Yes - My Orders Last 24 Hours: My Active Orders 08/18/17 14:00 Furosemide [Lasix] 20 mg PO BIDDIURETIC 08/18/17 21:00 Docusate Sodium/Sennosides [Senna Plus] 1 tab PO BID 08/19/17 10:53 Communication Order [RC] ROUTINE - Plan Plan:: 1. cough, fever, leukocytosis R. LL pneumonia with acute hypoxemic respiratory failure BCx negative for now sputum cx: Pending Treat empirically with azithro, rocephin 2. Acute exacerbation of diastolic chf last echo in 2016 There is mild to moderate concentric left ventricular hypertrophy. Ejection Fraction = 55-60%. The left atrium is moderately dilated. The right atrium is moderately dilated. There is mild to moderate mitral regurgitation. There is mild tricuspid regurgitation. Right ventricular systolic pressure is elevated at 40-50mmHg. We will continue with increased lasix bid follow elytes and renal fx. 3. KRISTINE with CKD III follow with increased diuretics 4. Afib appears in NS cont amiodarone cont anticoagulation with Xarelto 5. COPD no apparent exacerbation - no wheezing cont symbicort duoneb prn 6. Acute hypoxemic respiratory failure Supplement oxygen as needed It seems during the day she does not need oxygen anymore. We will do overnight desat study 7. DVT prophylaxis with Xarelto
[2017-08-19] MEDS: Sodium Chloride 0.9% 10 ML Syringe FLUSH PRN ×2 (14:49→17:46)
[2017-08-19] MEDS: cefTRIAXone 1 GM Vial IVPUSH SCH (14:49)
[2017-08-19] MEDS: Azithromycin 500 MG in Sodium Chloride 0.9% 250 ML IV SCH (15:05)
[2017-08-19] MEDS: atorvaSTATin 20 MG Tab PO SCH (20:48)
[2017-08-19] MEDS: Rivaroxaban 10 MG Tab PO SCH (20:48)
[2017-08-20 07:00] LABS: ANION GAP 12.9
[2017-08-20] MEDS: Albuterol/Ipratropium 3.0-0.5 MG/3 ML Neb Soln NEB SCH (07:27)
[2017-08-20] MEDS: Furosemide 20 MG Tab PO SCH ×2 (08:29→14:05)
[2017-08-20] MEDS: Multivitamins,Therapeutic Tab PO SCH (08:29)
[2017-08-20] MEDS: Diltiazem 120 MG Cap.CD PO SCH (08:30)
[2017-08-20] MEDS: Losartan 50 MG Tab PO SCH (08:31)
[2017-08-20] MEDS: Loratadine 10 MG Tab PO SCH (08:31)
[2017-08-20] MEDS: Spironolactone 25 MG Tab PO SCH (08:31)
[2017-08-20] MEDS: Potassium Chloride 10 MEQ Tab.ER PO SCH (08:32)
[2017-08-20] MEDS: Amiodarone 200 MG Tab PO SCH (08:32)
[2017-08-20] MEDS: Atenolol 25 MG Tab PO SCH (08:32)
[2017-08-20] MEDS: CHOLECALCIFEROL 2000 UNIT PO SCH (08:34)
[2017-08-20] MEDS: OMEGA PO SCH (08:35)
[2017-08-20] MEDS: FATTY ACIDS PO SCH (08:35)
[2017-08-20] MEDS: FISH OIL PO SCH (08:35)
[2017-08-20] MEDS: Fluticasone Propionate Nasal Spray 16 GM Bottle NAS SCH (08:36)
[2017-08-20] MEDS: SYMBICORT INH SCH (08:37)
--- NOTE | 2017-08-20 11:16 | PCM.DCSUM1 ---
Discharge Summary - Hospital Course Free Text/Narrative:: 72-year-old lady with a history of COPD, atrial fibrillation presented with the shortness of breath. 1. cough, fever, leukocytosis R. LL pneumonia with acute hypoxemic respiratory failure BCx negative for now sputum cx: Negative Treated empirically with azithro, rocephin We'll finish Augmentin therapy 2. Acute exacerbation of diastolic chf last echo in 2016 There is mild to moderate concentric left ventricular hypertrophy. Ejection Fraction = 55-60%. The left atrium is moderately dilated. The right atrium is moderately dilated. There is mild to moderate mitral regurgitation. There is mild tricuspid regurgitation. Right ventricular systolic pressure is elevated at 40-50mmHg. We will continue with increased lasix follow elytes and renal fx. periodically 3. KRISTINE with CKD III follow with increased diuretics periodically 4. Afib appears in NS cont amiodarone cont anticoagulation with Xarelto 5. COPD cont symbicort duoneb prn 6. Acute hypoxemic respiratory failure due to COPD, congestive heart failure The patient required oxygen at night 1 L/m along with oxygen during the day resting requirement was 1 L/m The patient will need oxygen likely lifelong. She is active in and around the house she would benefit from a portable machine She was not previously on home oxygen - Discharge Data Discharge Date: 08/20/17 Discharge Disposition: Home, Self-Care 01 Condition: Good - Patient Instructions Diet: Heart Healthy Diet Activity: As Tolerated - Discharge Plan Prescriptions/Med Rec: Amoxicillin/Potassium Clav [Augmentin 500-125 Tablet] 1 each PO TID #21 tablet Furosemide [Lasix] 40 mg PO DAILY #30 tablet Home Medications: Home Meds Acetaminophen [Tylenol Extra Strength] 500 mg PO BID PRN 02/24/17 [History] Amiodarone [Cordarone] 200 mg PO DAILY 02/24/17 [History] Atenolol 75 mg PO DAILY 02/24/17 [History] Budesonide/Formoterol Fumarate [Symbicort 80-4.5 Mcg Inhaler] 2 puff INH BID [History] Cholecalciferol (Vitamin D3) [Vitamin D3] 2,000 unit PO BID 02/24/17 [History] Diltiazem HCl [Cartia Xt] 120 mg PO DAILY 02/24/17 [History] Fish Oil/[place]-3 Fatty Acids [Fish Oil 1,000 MG] 1,000 mg PO DAILY 02/24/17 [ History] Fluticasone Propionate [Flonase] 50 mcg IVET DAILY 02/24/17 [History] Losartan [Cozaar] 50 mg PO DAILY 02/24/17 [History] Multivitamin [Daily Multiple Vitamin] 1 tab PO DAILY 02/24/17 [History] Potassium Chloride [Klor-Con M20] 20 meq PO DAILY 02/24/17 [History] Rivaroxaban [Xarelto] 20 mg PO DAILY 02/24/17 [History] Spironolactone [Aldactone] 25 mg PO DAILY 02/24/17 [History] atorvaSTATin [Lipitor] 20 mg PO DAILY 02/24/17 [History] Albuterol [Proair HFA] 2 puff INH DAILY PRN 08/16/17 [History] Codeine/Promethazine [Phenergan with Codeine] 5 ml PO Q6HR PRN 08/16/17 [History ] Loratadine 10 mg PO DAILY 08/16/17 [History] Amoxicillin/Potassium Clav [Augmentin 500-125 Tablet] 1 each PO TID #21 tablet 08/20/17 [Rx] Furosemide [Lasix] 40 mg PO DAILY #30 tablet 08/20/17 [Rx] Referrals: Ailin Napoles PA [Primary Care Provider] - (in 3-4 days) - Discharge Summary/Plan Comment DC Time >30 min.: Yes (arranging home oxygen, d/w daugther, RT) - General Info Date of Service: 08/20/17 - Review of Systems General: Denies: Fever, Weakness Pulmonary: Reports: Shortness of Breath (Improved) Cardiovascular: Denies: Chest Pain, Edema Gastrointestinal: Denies: Abdominal Pain Neurological: Denies: Confusion Psychiatric: Denies: Depression - Patient Data Vitals - Most Recent: Last Vital Signs Temp 35.9 C 08/20/17 08:51 Pulse 61 08/20/17 08:51 Resp 20 08/20/17 08:51 BP 140/53 L 08/20/17 08:51 Pulse Ox 88 L 08/20/17 08:51 Weight - Most Recent: 91.989 kg I&O - Last 24 hours: Intake & Output 08/19/17 08/20/17 08/20/17 22:59 06:59 14:59 Intake Total 798 Output Total 450 800 Balance 348 -800 Lab Results - Last 24 hrs: Laboratory Results - last 24 hr 08/20/17 08/20/17 Range/Units 06:15 06:15 WBC 6.1 (5.0-10.0) 10^3/uL RBC 3.93 L (4.2-5.4) 10^6/uL Hgb 12.6 (12.0-16.0) g/dL Hct 38.3 (37.0-47.0) % MCV 97.5 (80-100) fL MCH 32.1 (27.0-34.0) pg MCHC 32.9 L (33.0-35.0) g/dL Plt Count 177 (150-450) 10^3/uL Neut % (Auto) 56.5 (42.2-75.2) % Lymph % (Auto) 27.0 (20.5-50.1) % [place] % (Auto) 11.8 H (2-8) % Eos % (Auto) 4.2 H (1.0-3.0) % Baso % (Auto) 0.5 (0.0-1.0) % Sodium 139 (135-145) mmol/L Potassium 3.9 (3.6-5.0) mmol/L Chloride 103 (101-111) mmol/L Carbon Dioxide 27.0 (21.0-31.0) mmol/L Anion Gap 12.9 BUN 17 (7-18) mg/dL Creatinine 1.2 (0.6-1.3) mg/dL Est Cr Clr Drug Dosing 40.60 mL/min Estimated GFR (MDRD) 44 Glucose 127 H (74-105) mg/dL Calcium 9.7 (8.4-10.2) mg/dl SYD Results - Last 24 hrs: Microbiology 08/17/17 15:25 Gram Stain - Final Sputum - Expectorated Sputum Culture - Final Normal [place] 08/16/17 13:40 Aerobic Blood Culture - Preliminary Blood - Venous - Lab Draw NO GROWTH AFTER 3 DAYS Anaerobic Blood Culture - Preliminary NO GROWTH AFTER 3 DAYS 08/16/17 13:35 Aerobic Blood Culture - Preliminary Blood - Venous NO GROWTH AFTER 3 DAYS Anaerobic Blood Culture - Preliminary NO GROWTH AFTER 3 DAYS Med Orders - Current: Current Medications Acetaminophen (Tylenol Extra Strength) 500 mg PO Q4H PRN PRN Reason: Pain, fever Albuterol/Ipratropium (Duoneb 3.0-0.5 Mg/3 Ml) 3 ml NEB Q6HRRT PRN PRN Reason: sob Albuterol/Ipratropium (Duoneb 3.0-0.5 Mg/3 Ml) 3 ml NEB TIDRT [facility] Last Admin: 08/20/17 07:27 Dose: 3 ml Amiodarone HCl (Cordarone) 200 mg PO DAILY [facility] Last Admin: 08/20/17 08:32 Dose: 200 mg Atenolol (Tenormin) 75 mg PO DAILY [facility] Last Admin: 08/20/17 08:32 Dose: 75 mg Atorvastatin Calcium (Lipitor) 20 mg PO BEDTIME [facility] Last Admin: 08/19/17 20:48 Dose: 20 mg Ceftriaxone Sodium (Rocephin) 1 gm IVPUSH Q24H [facility] Last Admin: 08/19/17 14:49 Dose: 1 gm Diltiazem HCl (Cardizem Cd) 120 mg PO DAILY [facility] Last Admin: 08/20/17 08:30 Dose: 120 mg Fluticasone Propionate (Flonase) 0 gm IVET DAILY [facility] Last Admin: 08/20/17 08:36 Dose: 1 spray Furosemide (Lasix) 20 mg PO BIDDIURETIC [facility] Last Admin: 08/20/17 08:29 Dose: 20 mg Azithromycin 500 mg/ Sodium (Chloride) 250 mls @ 250 mls/hr IV Q24H [facility] Last Admin: 08/19/17 15:05 Dose: 100 mls/hr Loratadine (Claritin) 10 mg PO DAILY [facility] Last Admin: 08/20/17 08:31 Dose: 10 mg Losartan Potassium (Cozaar) 50 mg PO DAILY [facility] Last Admin: 08/20/17 08:31 Dose: 50 mg Multivitamins (Thera) 1 each PO DAILY [facility] Last Admin: 08/20/17 08:29 Dose: 1 each Nf Symbicort 80-4.5 (Mcg InhOwn Med) 0 puff INH BIDRT [facility] Last Admin: 08/20/17 08:37 Dose: 1 puff Nf Cholecalciferol ( Vitamin D3)2,000 UnitOwn Med 0 unit PO BID [facility] Last Admin: 08/20/17 08:34 Dose: 1 unit Nf Fish Oil/[place]-3 Fatty Acids 1,200 Mg Own Med 0 mg PO DAILY [facility] Last Admin: 08/20/17 08:35 Dose: 1,200 mg Potassium Chloride (Klor-Con 10) 20 meq PO DAILY@0800 [facility] Last Admin: 08/20/17 08:32 Dose: 20 meq Promethazine HCl/Codeine (Phenergan With Codeine) 5 ml PO Q6HR PRN PRN Reason: Cough Last Admin: 08/18/17 23:11 Dose: 5 ml Rivaroxaban (Xarelto) 20 mg PO BEDTIME [facility] Last Admin: 08/19/17 20:48 Dose: 20 mg Senna/Docusate Sodium (Senna Plus) 1 tab PO BID [facility] Last Admin: 08/20/17 08:29 Dose: 1 tab Sodium Chloride (Saline Flush) 10 ml FLUSH ASDIRECTED PRN PRN Reason: Keep Vein Open Last Admin: 08/19/17 17:46 Dose: 10 ml Spironolactone (Aldactone) 25 mg PO DAILY [facility] Last Admin: 08/20/17 08:31 Dose: 25 mg Zolpidem Tartrate (Ambien) 5 mg PO BEDTIME PRN PRN Reason: Sleep Discontinued Medications Furosemide (Lasix) 20 mg IVPUSH BIDDIURETIC [facility] Last Admin: 08/18/17 09:07 Dose: 20 mg Insulin Aspart (Novolog) 0 unit SUBCUT TIDAC [facility]; Protocol Last Admin: 08/17/17 08:54 Dose: Not Given Potassium Chloride (Klor-Con 10) 20 meq PO ONETIME ONE Stop: 08/17/17 16:01 Last Admin: 08/17/17 17:32 Dose: 20 meq - Exam Quality Assessment: Reports: Supplemental Oxygen General: Reports: Alert, Oriented Neck: Reports: Supple Lungs: Reports: Normal Respiratory Effort, Decreased Breath Sounds Cardiovascular: Reports: Regular Rate, Regular Rhythm GI/Abdominal Exam: Normal Bowel Sounds, Soft, Non-Tender Extremities: No Pedal Edema Skin: Reports: Warm, Dry Neurological: Reports: No New Focal Deficit Psy/Mental Status: Reports: Alert, Normal Affect, Normal Mood
== END 2017-08-20 15:30 | disposition home or self-care (01) | DRG 193 ==
LOC: UNDOADMIN 12:11 → DL.MS 12:11
PROVIDERS: ADMIT Internal Medicine; ATTEND Internal Medicine
DX: J18.9 Pneumonia, unspecified organism (principal); J96.01 Acute respiratory failure with hypoxia; I50.33 Acute on chronic diastolic (congestive) heart failure; J44.0 Chronic obstructive pulmonary disease with (acute) lower respiratory infection; N17.9 Acute kidney failure, unspecified; I13.0 Hypertensive heart and chronic kidney disease with heart failure and stage 1 through stage 4 chronic kidney disease, or unspecified chronic kidney disease; I48.91 Unspecified atrial fibrillation; N18.3 Chronic kidney disease, stage 3 (moderate); I25.10 Atherosclerotic heart disease of native coronary artery without angina pectoris; H54.7 Unspecified visual loss; E78.00 Pure hypercholesterolemia, unspecified; E11.22 Type 2 diabetes mellitus with diabetic chronic kidney disease; Z79.01 Long term (current) use of anticoagulants; Z79.899 Other long term (current) drug therapy
CPT/HCPCS: 36415; 80048; 82962; 85025; 87040; 87070; 87205; 94010; 94640; 94667; 94668; A9270-GY; J0456; J0696; J1940; J7050

== ENCOUNTER 2019-06-13 16:02 | Observation (INO) | payer MEDICARE, OTHER ==
[2019-06-13] MEDS ORDERED: Magnesium Hydroxide 400 MG/5 ML Susp 30 ML Cup PO PRN (17:30)
[2019-06-13] MEDS ORDERED: Docusate Sodium 100 MG Cap PO PRN (17:30)
[2019-06-13] MEDS ORDERED: Ondansetron 4 MG/2 ML SDV IVPUSH PRN (17:30)
[2019-06-13] MEDS ORDERED: Acetaminophen 325 MG Tab PO PRN (17:30)
[2019-06-13] MEDS ORDERED: Fluticasone Propionate Nasal Spray 16 GM Bottle NAS PRN (17:44)
[2019-06-13] MEDS ORDERED: Codeine/Promethazine 10-6.25 MG/5 ML Syrup 5 ML UD Cup PO PRN (17:44)
[2019-06-13] MEDS ORDERED: Albuterol 6.7 GM Inhaler INH PRN (17:44)
--- NOTE | 2019-06-13 17:56 | PCM.HP ---
H&P History of Present Illness - General Date of Service: 06/13/19 Admit Problem/Dx: Admission Diagnosis/Problem Admission Diagnosis/Problem COPD, Severe chronic obstructive pulmonary disease Source of Information: Patient History Limitations: Reports: No Limitations - History of Present Illness Initial Comments - Free Text/Narative: Louann is a 74-year-old female with past medical history of COPD on home oxygen 1 L at night, hypertension, CAD, A. fib who was sent from clinic for evaluation of shortness of breath. Patient reports 3 days ago she started having cough and shortness of breath with hypoxia. Shortness of breath has gotten increasingly worse. She reports her O2 sats dropped into the 80s and she has to increase her oxygen level. It is associated with wheezing. Shortness of breath is both at stress and with activity. She notes dry cough within the same duration. She denies fever, chills, nausea, arthralgia, sore throat. She denies ill contacts or recent travel. She has no leg swelling or calf pain. She denies abdominal pain, nausea, vomiting. At the clinic is also essentially unremarkable. Chest x-ray was negative for infiltrate. Patient was transferred for admission for further management. Onset of Symptoms: Reports: Gradual Duration of Symptoms: Reports: Day(s): Location: Reports: Chest Quality: Reports: Ache Severity: Moderate Improves with: Reports: None Worsens with: Reports: None Associated Symptoms: Reports: No Other Symptoms - Related Data Allergies/Adverse Reactions: Allergies Allergy/AdvReac Type Severity Reaction Status Date / Time No Known Allergies Allergy Verified 06/13/19 17:06 Home Medications: Home Meds Acetaminophen [Tylenol Extra Strength] 1,000 mg PO Q6HR PRN 02/24/17 [History] Amiodarone [Cordarone] 200 mg PO DAILY 02/24/17 [History] Budesonide/Formoterol Fumarate [Symbicort 80-4.5 MCG] 2 puff INH BID 02/24/17 [ History] Cholecalciferol (Vitamin D3) [Vitamin D3] 2,000 unit PO DAILY 02/24/17 [History] Fish Oil/[place]-3 Fatty Acids [Fish Oil 1,000 MG] 1,000 mg PO DAILY 02/24/17 [ History] Fluticasone Propionate [Flonase] 50 mcg IVET DAILY PRN 02/24/17 [History] Losartan [Cozaar] 25 mg PO DAILY 02/24/17 [History] Multivitamin [Daily Multiple Vitamin] 1 tab PO DAILY 02/24/17 [History] Rivaroxaban [Xarelto] 15 mg PO DAILY 02/24/17 [History] Spironolactone [Aldactone] 25 mg PO DAILY 02/24/17 [History] atenoloL [Atenolol] 75 mg PO DAILY 02/24/17 [History] atorvaSTATin [Lipitor] 20 mg PO DAILY 02/24/17 [History] Albuterol [Proair HFA] 2 puff INH Q6HR PRN 08/16/17 [History] Codeine/Promethazine [Phenergan with Codeine] 5 ml PO Q4HR PRN 08/16/17 [History ] Loratadine 10 mg PO DAILY 08/16/17 [History] Allopurinol [Zyloprim] 100 mg PO DAILY 06/13/19 [History] Ammonium Lactate [Amlactin 12% Lotion] 1 dose TP BID PRN 06/13/19 [History] Furosemide [Lasix] 80 mg PO BID 06/13/19 [History] amLODIPine Besylate [Norvasc] 10 mg PO DAILY 06/13/19 [History] Past Medical History HEENT History: Reports: Cataract, Impaired Vision Cardiovascular History: Reports: Heart Failure, High Cholesterol, Hypertension Respiratory History: Reports: COPD, SOB Gastrointestinal History: Reports: GERD, Hiatal Hernia Genitourinary History: Reports: None Other Genitourinary History: stress [employer] History: Reports: Musculoskeletal History: Reports: Arthritis, Fracture, Gout Neurological History: Reports: Migraines Psychiatric History: Reports: None Endocrine/Metabolic History: Reports: Diabetes, Type II Other Endocrine/Metabolic History: diet controlled Hematologic History: Reports: None Immunologic History: Reports: None Oncologic (Cancer) History: Reports: None Dermatologic History: Reports: None - Infectious Disease History Infectious Disease History: Reports: Chicken Pox, Measles, Mumps - Past Surgical History Head Surgeries/Procedures: Reports: None HEENT Surgical History: Reports: Tonsillectomy Other Cardiovascular Surgeries/Procedures: cardioversion 3 years ago Respiratory Surgical History: Reports: None GI Surgical History: Reports: Appendectomy, Colonoscopy Female Surgical History: Reports: None Endocrine Surgical History: Reports: None Neurological Surgical History: Reports: None Musculoskeletal Surgical History: Reports: None Oncologic Surgical History: Reports: None Dermatological Surgical History: Reports: None Social & Family History - Family History Family Medical History: Noncontributory - Tobacco Use Smoking Status *Q: Former Smoker Used Tobacco, but Quit: Yes Month/Year Tobacco Last Used: 1989 Second Hand Smoke Exposure: No - Caffeine Use Caffeine Use: Reports: Coffee - Alcohol Use Days Per Week of Alcohol Use: 7 Number of Drinks Per Day: 2 Total Drinks Per Week: 14 - Recreational Drug Use Recreational Drug Use: No H&P Review of Systems - Review of Systems: Review Of Systems: See Below General: Reports: Weakness HEENT: Reports: No Symptoms Pulmonary: Reports: Shortness of Breath, Wheezing, Cough Cardiovascular: Reports: No Symptoms Gastrointestinal: Reports: No Symptoms Genitourinary: Reports: No Symptoms Musculoskeletal: Reports: No Symptoms Skin: Reports: No Symptoms Psychiatric: Reports: No Symptoms Neurological: Reports: No Symptoms Hematologic/Lymphatic: Reports: No Symptoms Immunologic: Reports: No Symptoms Exam - Exam Exam: See Below - Vital Signs Vital Signs: Last Vital Signs Temp 97.2 F 06/13/19 16:25 Pulse 56 L 06/13/19 16:25 Resp 20 06/13/19 16:25 BP 125/46 L 06/13/19 16:25 Pulse Ox 80 L 06/13/19 16:25 Weight: 185 lb 3 oz - Exam General: Alert, Oriented, 4 HEENT: PERRLA, Hearing Intact, Mucosa Moist & [place], Nares Patent, Normal Nasal Septum, Posterior Pharynx Clear, Conjunctiva Clear, EOMI, EACs Clear, TMs Clear Neck: Supple, Trachea Midline, 2 Lungs: Normal Respiratory Effort, Wheezing Cardiovascular: Regular Rate, Regular Rhythm GI/Abdominal Exam: Normal Bowel Sounds, Soft, Non-Tender, No Organomegaly, No Distention, No Abnormal Bruit, No Mass, Pelvis Stable (Female) Exam: Normal External Exam, Normal Speculum Exam, Normal Bimanual Exam Rectal (Female) Exam: Normal Exam, Normal Rectal Tone Back Exam: Normal Inspection, Full Range of Motion, NT Extremities: Normal Inspection, Normal Range of Motion, Non-Tender, No Pedal Edema, Normal Capillary Refill Skin: Warm, Dry, Intact Neurological: Cranial Nerves Intact, Reflexes Equal Bilateral Neuro Extensive - Mental Status: Alert, Oriented x3, Normal Mood/Affect, Normal Cognition Neuro Extensive - Motor, Sensory, Reflexes: CN II-XII Intact, Normal Gait, Normal Reflexes Psychiatric: Alert, Normal Affect, Normal Mood - Problem List (1) COPD exacerbation SNOMED Code(s): 592124169 ICD Code: J44.1 - CHRONIC OBSTRUCTIVE PULMONARY DISEASE W (ACUTE) EXACERBATION Status: Acute Current Visit: Yes (2) HTN (hypertension) SNOMED Code(s): 33155084 ICD Code: I10 - ESSENTIAL (PRIMARY) HYPERTENSION Status: Acute Current Visit: Yes Problem List Initiated/Reviewed/Updated: Yes Orders Last 24hrs: Active Orders 24 hr Category Date Time Status Patient Status [ADT] Routine ADT 06/13/19 17:30 Ordered Ambulate [RC] ASDIRECTED Care 06/13/19 17:30 Ordered Blood Glucose Check, Bedside [RC] QIDACANDBED Care 06/13/19 17:30 Ordered Height and Weight [RC] DAILY Care 06/13/19 17:30 Ordered Intake and Output [RC] QSHIFT Care 06/13/19 17:40 Ordered Notify Provider Vital Signs [RC] ASDIRECTED Care 06/13/19 17:40 Ordered Oxygen Therapy [RC] PRN Care 06/13/19 17:30 Ordered Pulse Oximetry [RC] PRN Care 06/13/19 17:40 Ordered RT Aerosol Therapy [RC] ASDIRECTED Care 06/13/19 17:42 Ordered VTE/DVT Education [RC] PER UNIT ROUTINE Care 06/13/19 17:30 Ordered Vital Signs [RC] Q4H Care 06/13/19 17:30 Ordered Respiratory Care Assess and Treatment [CONS] Routine Cons 06/13/19 17:30 Ordered Heart Healthy Diet [DIET] Diet 06/13/19 Dinner Ordered CBC WITH AUTO DIFF [HEME] DAILY Lab 06/13/19 17:30 Ordered COMPREHENSIVE METABOLIC PN,CMP [CHEM] DAILY Lab 06/13/19 17:30 Ordered MAGNESIUM [CHEM] DAILY Lab 06/13/19 17:30 Ordered PHOSPHORUS [CHEM] Routine Lab 06/13/19 17:30 Ordered Acetaminophen [Tylenol] Med 06/13/19 17:30 Ordered 650 mg PO Q4H PRN Albuterol [Proventil HFA] Med 06/13/19 17:44 Ordered 2 puff INH Q6HR PRN Albuterol/Ipratropium [DuoNeb 3.0-0.5 MG/3 ML] Med 06/13/19 17:30 Ordered 3 ml NEB Q4H Amiodarone [Cordarone] Med 06/14/19 09:00 Ordered 200 mg PO DAILY Budesonide/Formoterol Fumarate [Symbicort 80-4.5 MCG] Med 06/13/19 21:00 Ordered 2 puff INH BID Codeine/Promethazine [Phenergan with Codeine] Med 06/13/19 17:44 Ordered 5 ml PO Q4HR PRN Docusate Sodium [Colace] Med 06/13/19 17:30 Ordered 100 mg PO BID PRN Fluticasone Propionate [Flonase] Med 06/13/19 17:44 Ordered 0.0001 gm IVET DAILY PRN Furosemide [Lasix] Med 06/13/19 21:00 Ordered 80 mg PO BID Heparin Sodium Med 06/13/19 21:00 Ordered 5,000 units SUBCUT Q12HR Loratadine [Claritin] Med 06/14/19 09:00 Ordered 10 mg PO DAILY Losartan [Cozaar] Med 06/14/19 09:00 Ordered 25 mg PO DAILY Magnesium Hydroxide [Milk of Magnesia] Med 06/13/19 17:30 Ordered 30 ml PO Q12H PRN Ondansetron [Zofran] Med 06/13/19 17:30 Ordered 4 mg IVPUSH Q6H PRN Rivaroxaban [Xarelto] Med 06/14/19 09:00 Ordered 15 mg PO DAILY Spironolactone [Aldactone] Med 06/14/19 09:00 Ordered 25 mg PO DAILY allopurinoL [Zyloprim] Med 06/14/19 09:00 Ordered 100 mg PO DAILY amLODIPine Besylate [Norvasc] Med 06/14/19 09:00 Ordered 10 mg PO DAILY atenoloL [Tenormin] Med 06/14/19 09:00 Ordered 75 mg PO DAILY atorvaSTATin [Lipitor] Med 06/14/19 09:00 Ordered 20 mg PO DAILY Resuscitation Status Routine Resus Stat 06/13/19 17:30 Ordered Assessment/Plan Comment:: #COPD exacerbation -Admit to medical floor -Breathing treatments with duo nebs -IV Solu-Medrol -Azithromycin #Acute on chronic respiratory failure due to COPD exacerbation -Continue supplemental oxygen and wean off as able #Hypertension -Within acceptable -Continue home medication -Monitor BP closely #A. fib -Controlled -Continue home medication -Continue Xarelto for chronic anticoagulation #CAD -Stable. Continue home medication #Cardiac diet #Code status -Discussion with patient and she prefers to be full code
[2019-06-13] MEDS ORDERED: Azithromycin 500 MG in Sodium Chloride 0.9% 250 ML IV SCH (18:00)
[2019-06-13] MEDS ORDERED: cefTRIAXone 1 GM in Sodium Chloride 0.9% 50 ML IV SCH (18:00)
[2019-06-13] MEDS: Furosemide 20 MG Tab PO SCH (18:35)
[2019-06-13] MEDS: methylPREDNISolone Sodium Succinate 40 MG/1 ML SDV IVPUSH SCH (18:35)
[2019-06-13] MEDS: Albuterol/Ipratropium 3.0-0.5 MG/3 ML Neb Soln NEB SCH ×2 (18:35→21:37)
[2019-06-13 19:56] LABS: ANION GAP 17.1
[2019-06-13] MEDS: cefTRIAXone 1 GM in Sodium Chloride 0.9% 50 ML IV SCH (21:09)
[2019-06-13] MEDS: Formoterol/Mometasone 100-5 MCG 8.8 GM Inhaler IH SCH (21:16)
[2019-06-13] MEDS: Heparin Sodium 5,000 Units/ML Vial SUBCUT SCH (22:02)
[2019-06-14] MEDS: Albuterol/Ipratropium 3.0-0.5 MG/3 ML Neb Soln NEB SCH ×7 (01:57→23:07)
[2019-06-14] MEDS: methylPREDNISolone Sodium Succinate 40 MG/1 ML SDV IVPUSH SCH ×3 (01:58→17:31)
[2019-06-14 06:52] LABS: ANION GAP 17.9
[2019-06-14] MEDS ORDERED: Magnesium Sulfate/Water 2 GM in Premix Bag 1 BAG IV ONE (09:12)
[2019-06-14] MEDS: Allopurinol 100 MG Tab PO SCH (09:45)
[2019-06-14] MEDS: Loratadine 10 MG Tab PO SCH (09:45)
[2019-06-14] MEDS: Rivaroxaban 10 MG Tab PO SCH (09:48)
[2019-06-14] MEDS: Furosemide 20 MG Tab PO SCH ×2 (09:48→15:13)
[2019-06-14] MEDS: Heparin Sodium 5,000 Units/ML Vial SUBCUT SCH ×2 (09:49→22:10)
[2019-06-14] MEDS: Formoterol/Mometasone 100-5 MCG 8.8 GM Inhaler IH SCH ×2 (09:49→22:24)
[2019-06-14] MEDS: atorvaSTATin 20 MG Tab PO SCH (09:49)
[2019-06-14] MEDS: Amiodarone 200 MG Tab PO SCH (09:49)
[2019-06-14] MEDS: Spironolactone 25 MG Tab PO SCH (09:49)
--- NOTE | 2019-06-14 09:55 | PCM.PN ---
- General Info Date of Service: 06/14/19 Admission Dx/Problem (Free Text): Admission Diagnosis/Problem Admission Diagnosis/Problem COPD, Severe chronic obstructive pulmonary disease Subjective Update: Louann is a 74-year-old female with past medical history of COPD on home oxygen 1 L at night, hypertension, CAD, A. fib who was sent from clinic for evaluation of shortness of breath. She was admitted for COPD exacerbation with acute on chronic respiratory failure. Today she is doing ok. Endorsed feeling better than she came in. Still on 2 L via NC and saturating well. She denies fever, chills. No SOB, chest pain. No wheezing. Functional Status: Reports: Pain Controlled - Review of Systems General: Reports: No Symptoms HEENT: Reports: No Symptoms Pulmonary: Reports: No Symptoms Cardiovascular: Reports: No Symptoms Gastrointestinal: Reports: No Symptoms Genitourinary: Reports: No Symptoms Musculoskeletal: Reports: No Symptoms Skin: Reports: No Symptoms Neurological: Reports: No Symptoms Psychiatric: Reports: No Symptoms - Patient Data Vitals - Most Recent: Last Vital Signs Temp 97.9 F 06/14/19 07:34 Pulse 58 L 06/14/19 07:34 Resp 22 H 06/14/19 07:34 BP 99/40 L 06/14/19 07:34 Pulse Ox 93 L 06/14/19 07:34 Weight - Most Recent: 186 lb 4 oz I&O - Last 24 Hours: Intake & Output 06/13/19 06/14/19 06/14/19 22:59 06:59 14:59 Intake Total 150 350 Output Total 50 Balance 100 350 Lab Results Last 24 Hours: Laboratory Results - last 24 hr 06/13/19 06/13/19 06/13/19 Range/Units 19:05 19:05 21:06 WBC 11.0 H (5.0-10.0) 10^3/uL RBC 3.79 L (4.2-5.4) 10^6/uL Hgb 12.2 (12.0-16.0) g/dL Hct 37.2 (37.0-47.0) % MCV 98.2 (80-100) fL MCH 32.2 (27.0-34.0) pg MCHC 32.8 L (33.0-35.0) g/dL Plt Count 227 (150-450) 10^3/uL Neut % (Auto) 66.5 (42.2-75.2) % Lymph % (Auto) 19.5 L (20.5-50.1) % Sanders % (Auto) 11.4 H (2-8) % Eos % (Auto) 2.2 (1.0-3.0) % Baso % (Auto) 0.4 (0.0-1.0) % Sodium 134 L (135-145) mmol/L Potassium 4.1 (3.6-5.0) mmol/L Chloride 92 L (101-111) mmol/L Carbon Dioxide 29.0 (21.0-31.0) mmol/L Anion Gap 17.1 BUN 31 H (7-18) mg/dL Creatinine 2.8 H D (0.6-1.3) mg/dL Est Cr Clr Drug Dosing 16.57 mL/min Estimated GFR (MDRD) 16 BUN/Creatinine Ratio 11.07 Glucose 196 H (74-105) mg/dL POC Glucose 197 H (83-110) mg/dl Calcium 9.4 (8.4-10.2) mg/dl Phosphorus 4.2 (2.5-4.6) mg/dL Magnesium 1.6 L (1.8-2.5) mg/dL Total Bilirubin 0.9 (0.2-1.0) mg/dL AST 29 (10-42) IU/L ALT 28 (10-60) IU/L Alkaline Phosphatase 73 (42-121) IU/L Total Protein 6.6 L (6.7-8.2) g/dl Albumin 3.5 (3.2-5.5) g/dl Globulin 3.1 Albumin/Globulin Ratio 1.13 06/14/19 06/14/19 06/14/19 Range/Units 06:05 06:05 07:54 WBC 6.1 (5.0-10.0) 10^3/uL RBC 3.66 L (4.2-5.4) 10^6/uL Hgb 12.0 (12.0-16.0) g/dL Hct 35.0 L (37.0-47.0) % MCV 95.6 (80-100) fL MCH 32.8 (27.0-34.0) pg MCHC 34.3 (33.0-35.0) g/dL Plt Count 225 (150-450) 10^3/uL Neut % (Auto) (42.2-75.2) % Lymph % (Auto) (20.5-50.1) % Sanders % (Auto) (2-8) % Eos % (Auto) (1.0-3.0) % Baso % (Auto) (0.0-1.0) % Sodium 134 L (135-145) mmol/L Potassium 3.9 (3.6-5.0) mmol/L Chloride 93 L (101-111) mmol/L Carbon Dioxide 27.0 (21.0-31.0) mmol/L Anion Gap 17.9 BUN 34 H (7-18) mg/dL Creatinine 2.6 H (0.6-1.3) mg/dL Est Cr Clr Drug Dosing 17.84 mL/min Estimated GFR (MDRD) 18 BUN/Creatinine Ratio Glucose 278 H (74-105) mg/dL POC Glucose 271 H (83-110) mg/dl Calcium 8.9 (8.4-10.2) mg/dl Phosphorus (2.5-4.6) mg/dL Magnesium (1.8-2.5) mg/dL Total Bilirubin (0.2-1.0) mg/dL AST (10-42) IU/L ALT (10-60) IU/L Alkaline Phosphatase (42-121) IU/L Total Protein (6.7-8.2) g/dl Albumin (3.2-5.5) g/dl Globulin Albumin/Globulin Ratio Med Orders - Current: Current Medications Acetaminophen (Tylenol) 650 mg PO Q4H PRN PRN Reason: Pain (Mild 1-3)/fever Albuterol (Proventil Hfa) 0 gm INH Q6H PRN PRN Reason: Wheezing Albuterol/Ipratropium (Duoneb 3.0-0.5 Mg/3 Ml) 3 ml NEB Q4H [facility] Last Admin: 06/14/19 06:02 Dose: 3 ml Allopurinol (Zyloprim) 100 mg PO DAILY [facility] Amiodarone HCl (Cordarone) 200 mg PO DAILY [facility] Amlodipine Besylate (Norvasc) 10 mg PO DAILY [facility] Atenolol (Tenormin) 75 mg PO DAILY [facility] Atorvastatin Calcium (Lipitor) 20 mg PO DAILY [facility] Docusate Sodium (Colace) 100 mg PO BID PRN PRN Reason: Constipation Fluticasone Propionate (Flonase) 0 gm IVET DAILY PRN PRN Reason: Rhinitis Furosemide (Lasix) 80 mg PO BIDDIURETIC [facility] Last Admin: 06/13/19 18:35 Dose: 80 mg Heparin Sodium (Porcine) (Heparin Sodium) 5,000 units SUBCUT Q12HR [facility] Last Admin: 06/13/19 22:02 Dose: Not Given Ceftriaxone Sodium 1 gm/ (Sodium Chloride) 50 mls @ 100 mls/hr IV Q24H [facility] Last Admin: 06/13/19 21:09 Dose: 50 mls/hr Magnesium Sulfate 2 gm/ Premix 50 mls @ 25 mls/hr IV ONETIME ONE Stop: 06/14/19 11:11 Sodium Chloride (Normal Saline) 1,000 mls @ 100 mls/hr IV ASDIRECTED [facility] Loratadine (Claritin) 10 mg PO DAILY [facility] Losartan Potassium (Cozaar) 25 mg PO DAILY [facility] Magnesium Hydroxide (Milk Of Magnesia) 30 ml PO Q12H PRN PRN Reason: Constipation Methylprednisolone Sodium Succinate (Solu-Medrol) 40 mg IVPUSH Q8H [facility] Last Admin: 06/14/19 01:58 Dose: 40 mg Mometasone Furoate/Formoterol Fumar (Dulera 100-5 Mcg) 2 puff IH BID [facility] Last Admin: 06/13/19 21:16 Dose: 2 puff Ondansetron HCl (Zofran) 4 mg IVPUSH Q6H PRN PRN Reason: Nausea/Vomiting Promethazine HCl/Codeine (Phenergan With Codeine) 5 ml PO Q4HR PRN PRN Reason: Cough Rivaroxaban (Xarelto) 15 mg PO DAILY [facility] Spironolactone (Aldactone) 25 mg PO DAILY [facility] Discontinued Medications Azithromycin 500 mg/ Sodium (Chloride) 250 mls @ 250 mls/hr IV Q24H [facility] Last Admin: 06/13/19 18:36 Dose: Not Given Ceftriaxone Sodium 1 gm/ (Sodium Chloride) 50 mls @ 100 mls/hr IV Q24H [facility] Last Admin: 06/14/19 06:45 Dose: Not Given - Exam Quality Assessment: Supplemental Oxygen, DVT Prophylaxis General: Alert, Oriented HEENT: Pupils Equal, Pupils Reactive, EOMI, Mucous Membr. Moist/[place] Neck: Supple Lungs: Clear to Auscultation, Normal Respiratory Effort Cardiovascular: Regular Rate, Regular Rhythm GI/Abdominal Exam: Normal Bowel Sounds, Soft, Non-Tender, No Organomegaly, No Distention, No Abnormal Bruit, No Mass, Pelvis Stable (Female) Exam: Normal External Exam, Normal Speculum Exam, Normal Bimanual Exam Back Exam: Normal Inspection, Full Range of Motion Extremities: Normal Inspection, Normal Range of Motion, Non-Tender, No Pedal Edema, Normal Capillary Refill Skin: Warm, Dry, Intact Wound/Incisions: Healing Well Neurological: No New Focal Deficit Psy/Mental Status: Alert, Normal Affect, Normal Mood Sepsis Event Note - Evaluation Sepsis Screening Result: No Definite Risk - Focused Exam Vital Signs: Vital Signs Temp Pulse Resp BP Pulse Ox 06/14/19 07:34 97.9 F 58 L 22 H 99/40 L 93 L 06/14/19 04:00 96.8 F L 60 20 127/50 L 95 Date Exam was Performed: 06/14/19 Time Exam was Performed: 09:51 - Problem List & Annotations (1) COPD exacerbation SNOMED Code(s): 090676733 Code(s): J44.1 - CHRONIC OBSTRUCTIVE PULMONARY DISEASE W (ACUTE) EXACERBATION Status: Acute Current Visit: Yes (2) HTN (hypertension) SNOMED Code(s): 12622285 Code(s): I10 - ESSENTIAL (PRIMARY) HYPERTENSION Status: Acute Current Visit: Yes - Problem List Review Problem List Initiated/Reviewed/Updated: Yes - My Orders Last 24 Hours: My Active Orders 06/13/19 17:30 Patient Status [ADT] Routine Ambulate [RC] ASDIRECTED Blood Glucose Check, Bedside [RC] QIDACANDBED Height and Weight [RC] 06 Oxygen Therapy [RC] PRN VTE/DVT Education [RC] PER UNIT ROUTINE Vital Signs [RC] 00,04,08,12,16,20 Respiratory Care Assess and Treatment [CONS] Routine Acetaminophen [Tylenol] 650 mg PO Q4H PRN Albuterol/Ipratropium [DuoNeb 3.0-0.5 MG/3 ML] 3 ml NEB Q4H Docusate Sodium [Colace] 100 mg PO BID PRN Magnesium Hydroxide [Milk of Magnesia] 30 ml PO Q12H PRN Ondansetron [Zofran] 4 mg IVPUSH Q6H PRN Resuscitation Status Routine 06/13/19 17:40 Intake and Output [RC] QSHIFT Notify Provider Vital Signs [RC] ASDIRECTED Pulse Oximetry [RC] PRN 06/13/19 17:42 RT Aerosol Therapy [RC] ASDIRECTED 06/13/19 17:44 Albuterol [Proventil HFA] 0 gm INH Q6H PRN Codeine/Promethazine [Phenergan with Codeine] 5 ml PO Q4HR PRN Fluticasone Propionate [Flonase] 0 gm IVET DAILY PRN 06/13/19 18:00 methylPREDNISolone Sod Succ [Solu-MEDROL] 40 mg IVPUSH Q8H 06/13/19 18:30 Furosemide [Lasix] 80 mg PO BIDDIURETIC 06/13/19 20:00 cefTRIAXone [Rocephin] 1 gm Sodium Chloride 0.9% [Normal Saline] 50 ml IV Q24H 06/13/19 21:00 Mometasone/Formoterol [Dulera 100-5 MCG] 2 puff IH BID 06/13/19 21:45 Heparin Sodium 5,000 units SUBCUT Q12HR 06/13/19 Dinner Heart Healthy Diet [DIET] 06/14/19 09:00 Amiodarone [Cordarone] 200 mg PO DAILY Loratadine [Claritin] 10 mg PO DAILY Losartan [Cozaar] 25 mg PO DAILY Rivaroxaban [Xarelto] 15 mg PO DAILY Spironolactone [Aldactone] 25 mg PO DAILY allopurinoL [Zyloprim] 100 mg PO DAILY amLODIPine [Norvasc] 10 mg PO DAILY atenoloL [Tenormin] 75 mg PO DAILY atorvaSTATin [Lipitor] 20 mg PO DAILY 06/14/19 09:12 Magnesium Sulfate/Water [Magnesium Sulfate in Water Premix] 2 gm Premix Bag 1 bag IV ONETIME 06/14/19 10:00 Sodium Chloride 0.9% [Normal Saline] 1,000 ml IV ASDIRECTED - Plan Plan:: #COPD exacerbation -Admit to medical floor -Breathing treatments with duo nebs -IV Solu-Medrol -Azithromycin #Acute on chronic respiratory failure due to COPD exacerbation -Improving -Continue supplemental oxygen and wean off as able #Hypertension -Within acceptable -Continue home medication -Monitor BP closely #A. fib -Controlled -Continue home medication -Continue Xarelto for chronic anticoagulation #CAD -Stable. Continue home medication #CKD IV -Baseline clam sorter and GFR #Cardiac diet #Code status -Discussion with patient and she prefers to be full code
[2019-06-14] MEDS: Sodium Chloride 0.9% 1,000 ML IV SCH ×2 (10:17→20:09)
[2019-06-14] MEDS: Insulin Lispro 100 Units/ML 3 ML Vial SUBCUT SCH ×3 (12:16→22:24)
[2019-06-14] MEDS: Atenolol 25 MG Tab PO SCH (12:31)
[2019-06-14] MEDS: amLODIPine 5 MG Tab PO SCH (12:31)
[2019-06-14] MEDS: Losartan 50 MG Tab PO SCH (12:31)
[2019-06-14] MEDS: cefTRIAXone 1 GM in Sodium Chloride 0.9% 50 ML IV SCH (20:10)
[2019-06-15] MEDS: Albuterol/Ipratropium 3.0-0.5 MG/3 ML Neb Soln NEB SCH ×6 (03:10→22:35)
[2019-06-15] MEDS: methylPREDNISolone Sodium Succinate 40 MG/1 ML SDV IVPUSH SCH ×3 (03:10→20:38)
[2019-06-15] MEDS: Sodium Chloride 0.9% 1,000 ML IV SCH (07:18)
[2019-06-15] MEDS: Furosemide 20 MG Tab PO SCH ×2 (09:13→14:01)
[2019-06-15] MEDS: Formoterol/Mometasone 100-5 MCG 8.8 GM Inhaler IH SCH ×2 (09:13→21:16)
[2019-06-15] MEDS: Loratadine 10 MG Tab PO SCH (09:15)
[2019-06-15] MEDS: Losartan 50 MG Tab PO SCH (09:15)
[2019-06-15] MEDS: Rivaroxaban 10 MG Tab PO SCH (09:16)
[2019-06-15] MEDS: amLODIPine 5 MG Tab PO SCH (09:16)
[2019-06-15] MEDS: Spironolactone 25 MG Tab PO SCH (09:17)
[2019-06-15] MEDS: Amiodarone 200 MG Tab PO SCH (09:18)
[2019-06-15] MEDS: Allopurinol 100 MG Tab PO SCH (09:18)
[2019-06-15] MEDS: Atenolol 25 MG Tab PO SCH (09:18)
[2019-06-15] MEDS: atorvaSTATin 20 MG Tab PO SCH (09:19)
[2019-06-15] MEDS: Heparin Sodium 5,000 Units/ML Vial SUBCUT SCH ×2 (09:21→20:47)
[2019-06-15] MEDS: Insulin Lispro 100 Units/ML 3 ML Vial SUBCUT SCH ×7 (09:25→21:14)
[2019-06-15 11:01] LABS: ANION GAP 18.6
[2019-06-15] MEDS ORDERED: Insulin Regular, Human 100 Units/ML 3 ML Vial IV ONE (11:21)
--- NOTE | 2019-06-15 12:30 | PCM.PN ---
- General Info Date of Service: 06/15/19 Admission Dx/Problem (Free Text): Admission Diagnosis/Problem Admission Diagnosis/Problem COPD, Severe chronic obstructive pulmonary disease Subjective Update: Louann is a 74-year-old female with past medical history of COPD on home oxygen 1 L at night, hypertension, CAD, A. fib who was sent from clinic for evaluation of shortness of breath. She was admitted for COPD exacerbation with acute on chronic respiratory failure. Today she is doing ok but still on 2 L via NC and saturating well. She denies fever, chills. No SOB, chest pain. No wheezing. Functional Status: Reports: Pain Controlled - Review of Systems General: Reports: No Symptoms HEENT: Reports: No Symptoms Pulmonary: Reports: No Symptoms Cardiovascular: Reports: No Symptoms Gastrointestinal: Reports: No Symptoms Genitourinary: Reports: No Symptoms Musculoskeletal: Reports: No Symptoms Skin: Reports: No Symptoms Neurological: Reports: No Symptoms Psychiatric: Reports: No Symptoms - Patient Data Vitals - Most Recent: Last Vital Signs Temp 97.4 F 06/15/19 11:32 Pulse 66 06/15/19 11:32 Resp 20 06/15/19 11:32 BP 119/41 L 06/15/19 11:32 Pulse Ox 95 06/15/19 11:32 Weight - Most Recent: 193 lb 8 oz I&O - Last 24 Hours: Intake & Output 06/14/19 06/15/19 06/15/19 22:59 06:59 14:59 Intake Total 375 1550 Output Total 750 Balance 375 800 Lab Results Last 24 Hours: Laboratory Results - last 24 hr 06/14/19 06/14/19 06/15/19 Range/Units 16:54 21:01 07:52 WBC (5.0-10.0) 10^3/uL RBC (4.2-5.4) 10^6/uL Hgb (12.0-16.0) g/dL Hct (37.0-47.0) % MCV (80-100) fL MCH (27.0-34.0) pg MCHC (33.0-35.0) g/dL Plt Count (150-450) 10^3/uL Sodium (135-145) mmol/L Potassium (3.6-5.0) mmol/L Chloride (101-111) mmol/L Carbon Dioxide (21.0-31.0) mmol/L Anion Gap BUN (7-18) mg/dL Creatinine (0.6-1.3) mg/dL Est Cr Clr Drug Dosing mL/min Estimated GFR (MDRD) Glucose (74-105) mg/dL POC Glucose 372 H 360 H 268 H (83-110) mg/dl Calcium (8.4-10.2) mg/dl Phosphorus (2.5-4.6) mg/dL Magnesium (1.8-2.5) mg/dL B-Natriuretic Peptide (0-100) pg/ml 06/15/19 06/15/19 06/15/19 Range/Units 10:16 10:16 11:55 WBC 14.7 H (5.0-10.0) 10^3/uL RBC 3.63 L (4.2-5.4) 10^6/uL Hgb 11.7 L (12.0-16.0) g/dL Hct 35.1 L (37.0-47.0) % MCV 96.7 (80-100) fL MCH 32.2 (27.0-34.0) pg MCHC 33.3 (33.0-35.0) g/dL Plt Count 273 (150-450) 10^3/uL Sodium 131 L (135-145) mmol/L Potassium 3.6 (3.6-5.0) mmol/L Chloride 95 L (101-111) mmol/L Carbon Dioxide 21.0 (21.0-31.0) mmol/L Anion Gap 18.6 BUN 44 H (7-18) mg/dL Creatinine 2.4 H (0.6-1.3) mg/dL Est Cr Clr Drug Dosing 19.33 mL/min Estimated GFR (MDRD) 20 Glucose 408 H* (74-105) mg/dL POC Glucose 343 H (83-110) mg/dl Calcium 8.6 (8.4-10.2) mg/dl Phosphorus 4.1 (2.5-4.6) mg/dL Magnesium 2.0 (1.8-2.5) mg/dL B-Natriuretic Peptide 396 H (0-100) pg/ml Med Orders - Current: Current Medications Acetaminophen (Tylenol) 650 mg PO Q4H PRN PRN Reason: Pain (Mild 1-3)/fever Albuterol (Proventil Hfa) 0 gm INH Q6H PRN PRN Reason: Wheezing Albuterol/Ipratropium (Duoneb 3.0-0.5 Mg/3 Ml) 3 ml NEB Q4H [facility] Last Admin: 06/15/19 11:17 Dose: 3 ml Allopurinol (Zyloprim) 100 mg PO DAILY [facility] Last Admin: 06/15/19 09:18 Dose: 100 mg Amiodarone HCl (Cordarone) 200 mg PO DAILY [facility] Last Admin: 06/15/19 09:18 Dose: 200 mg Amlodipine Besylate (Norvasc) 10 mg PO DAILY [facility] Last Admin: 06/15/19 09:16 Dose: 10 mg Atenolol (Tenormin) 75 mg PO DAILY [facility] Last Admin: 06/15/19 09:18 Dose: 75 mg Atorvastatin Calcium (Lipitor) 20 mg PO DAILY [facility] Last Admin: 06/15/19 09:19 Dose: 20 mg Docusate Sodium (Colace) 100 mg PO BID PRN PRN Reason: Constipation Fluticasone Propionate (Flonase) 0 gm IVET DAILY PRN PRN Reason: Rhinitis Furosemide (Lasix) 80 mg PO BIDDIURETIC [facility] Last Admin: 06/15/19 09:13 Dose: 80 mg Heparin Sodium (Porcine) (Heparin Sodium) 5,000 units SUBCUT Q12HR [facility] Last Admin: 06/15/19 09:21 Dose: Not Given Ceftriaxone Sodium 1 gm/ (Sodium Chloride) 50 mls @ 100 mls/hr IV Q24H [facility] Last Admin: 06/14/19 20:10 Dose: 50 mls/hr Sodium Chloride (Normal Saline) 1,000 mls @ 100 mls/hr IV ASDIRECTED [facility] Last Admin: 06/15/19 07:18 Dose: 100 mls/hr Insulin Human Lispro (Humalog) 0 unit SUBCUT WITHMEALSANDBED [facility]; Protocol Last Admin: 06/15/19 09:28 Dose: 10 units Insulin Human Lispro (Humalog) 5 unit SUBCUT TIDMEALS [facility] Loratadine (Claritin) 10 mg PO DAILY [facility] Last Admin: 06/15/19 09:15 Dose: 10 mg Losartan Potassium (Cozaar) 25 mg PO DAILY [facility] Last Admin: 06/15/19 09:15 Dose: 25 mg Magnesium Hydroxide (Milk Of Magnesia) 30 ml PO Q12H PRN PRN Reason: Constipation Methylprednisolone Sodium Succinate (Solu-Medrol) 40 mg IVPUSH Q8H [facility] Last Admin: 06/15/19 09:22 Dose: 40 mg Mometasone Furoate/Formoterol Fumar (Dulera 100-5 Mcg) 2 puff IH BID [facility] Last Admin: 06/15/19 09:13 Dose: 2 puff Ondansetron HCl (Zofran) 4 mg IVPUSH Q6H PRN PRN Reason: Nausea/Vomiting Promethazine HCl/Codeine (Phenergan With Codeine) 5 ml PO Q4HR PRN PRN Reason: Cough Rivaroxaban (Xarelto) 15 mg PO DAILY [facility] Last Admin: 06/15/19 09:16 Dose: 15 mg Spironolactone (Aldactone) 25 mg PO DAILY [facility] Last Admin: 06/15/19 09:17 Dose: 25 mg Discontinued Medications Albuterol/Ipratropium (Duoneb 3.0-0.5 Mg/3 Ml) 3 ml NEB Q4H [facility] Last Admin: 06/14/19 09:45 Dose: 3 ml Azithromycin 500 mg/ Sodium (Chloride) 250 mls @ 250 mls/hr IV Q24H [facility] Last Admin: 06/13/19 18:36 Dose: Not Given Ceftriaxone Sodium 1 gm/ (Sodium Chloride) 50 mls @ 100 mls/hr IV Q24H [facility] Last Admin: 06/14/19 06:45 Dose: Not Given Magnesium Sulfate 2 gm/ Premix 50 mls @ 25 mls/hr IV ONETIME ONE Stop: 06/14/19 11:11 Last Admin: 06/14/19 10:17 Dose: 25 mls/hr Insulin Human Regular (Humulin R) 10 unit IV ONETIME ONE Stop: 06/15/19 11:22 Last Admin: 06/15/19 11:33 Dose: 10 units - Exam Quality Assessment: Supplemental Oxygen, DVT Prophylaxis General: Alert, Oriented HEENT: Pupils Equal, Pupils Reactive, EOMI, Mucous Membr. Moist/[place] Neck: Supple Lungs: Clear to Auscultation, Normal Respiratory Effort Cardiovascular: Regular Rate, Regular Rhythm GI/Abdominal Exam: Normal Bowel Sounds, Soft, Non-Tender, No Organomegaly, No Distention, No Abnormal Bruit, No Mass, Pelvis Stable (Female) Exam: Normal External Exam, Normal Speculum Exam, Normal Bimanual Exam Back Exam: Normal Inspection, Full Range of Motion Extremities: Normal Inspection, Normal Range of Motion, Non-Tender, No Pedal Edema, Normal Capillary Refill Skin: Warm, Dry, Intact Wound/Incisions: Healing Well Neurological: No New Focal Deficit Psy/Mental Status: Alert, Normal Affect, Normal Mood Sepsis Event Note - Evaluation Sepsis Screening Result: No Definite Risk - Focused Exam Vital Signs: Vital Signs Temp Pulse Pulse Resp BP BP Pulse Ox 06/15/19 11:32 97.4 F 66 20 119/41 L 95 06/15/19 11:18 67 06/15/19 09:18 73 109/50 L 06/15/19 09:16 109/50 L 06/15/19 09:15 109/50 L 06/15/19 07:59 98 F 75 20 109/48 L 93 L 06/15/19 07:48 67 06/15/19 04:00 98.6 F 72 20 117/44 L 89 L Pulse Ox 06/15/19 11:32 06/15/19 11:18 92 L 06/15/19 09:18 06/15/19 09:16 06/15/19 09:15 06/15/19 07:59 06/15/19 07:48 90 L 06/15/19 04:00 Date Exam was Performed: 06/15/19 Time Exam was Performed: 12:30 - Problem List & Annotations (1) COPD exacerbation SNOMED Code(s): 715890879 Code(s): J44.1 - CHRONIC OBSTRUCTIVE PULMONARY DISEASE W (ACUTE) EXACERBATION Status: Acute Current Visit: Yes (2) HTN (hypertension) SNOMED Code(s): 24377473 Code(s): I10 - ESSENTIAL (PRIMARY) HYPERTENSION Status: Acute Current Visit: Yes - Problem List Review Problem List Initiated/Reviewed/Updated: Yes - My Orders Last 24 Hours: My Active Orders 06/14/19 12:00 Insulin Lispro [HumaLOG] See Protocol SUBCUT WITHMEALSANDBED 06/15/19 09:20 Communication Order [RC] ONETIME 06/15/19 12:00 Insulin Lispro [HumaLOG] 5 unit SUBCUT TIDMEALS - Plan Plan:: #COPD exacerbation -Breathing treatments with duo nebs -IV Solu-Medrol -Azithromycin #Acute on chronic respiratory failure due to COPD exacerbation -Improving -Continue supplemental oxygen and wean off as able #Leukocytosis due to steroid use -Daily cbc #BNP mildly elevated -Patient euvolemic on exam -Continue PO Lasix #DM-II -Serum glucose elevated today. Steroid could be contributing to this -Continue current insulin regimen plus SSI -Add Lispro 5 units qmeals -Accu-cheks -Hypoglycemic protocol #Hypertension -Within acceptable -Continue home medication -Monitor BP closely #A. fib -Controlled -Continue home medication -Continue Xarelto for chronic anticoagulation #CAD -Stable. 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
[2019-06-15] MEDS: cefTRIAXone 1 GM in Sodium Chloride 0.9% 50 ML IV SCH (20:38)
[2019-06-16] MEDS: Albuterol/Ipratropium 3.0-0.5 MG/3 ML Neb Soln NEB SCH ×3 (03:28→11:40)
[2019-06-16] MEDS: Furosemide 20 MG Tab PO SCH (09:03)
[2019-06-16] MEDS: Spironolactone 25 MG Tab PO SCH (09:05)
[2019-06-16] MEDS: Allopurinol 100 MG Tab PO SCH (09:05)
[2019-06-16] MEDS: Amiodarone 200 MG Tab PO SCH (09:10)
[2019-06-16] MEDS: methylPREDNISolone Sodium Succinate 40 MG/1 ML SDV IVPUSH SCH (09:12)
[2019-06-16] MEDS: Losartan 50 MG Tab PO SCH (09:13)
[2019-06-16] MEDS: Loratadine 10 MG Tab PO SCH (09:13)
[2019-06-16] MEDS: Atenolol 25 MG Tab PO SCH (09:14)
[2019-06-16] MEDS: Heparin Sodium 5,000 Units/ML Vial SUBCUT SCH (09:14)
[2019-06-16] MEDS: atorvaSTATin 20 MG Tab PO SCH (09:14)
[2019-06-16] MEDS: amLODIPine 5 MG Tab PO SCH (09:14)
[2019-06-16] MEDS: Rivaroxaban 10 MG Tab PO SCH (09:15)
[2019-06-16] MEDS: Formoterol/Mometasone 100-5 MCG 8.8 GM Inhaler IH SCH (09:19)
[2019-06-16] MEDS: Insulin Lispro 100 Units/ML 3 ML Vial SUBCUT SCH ×4 (09:29→13:23)
--- NOTE | 2019-06-16 09:53 | PCM.DCSUM1 ---
Discharge Summary - Hospital Course Free Text/Narrative:: Louann is a 74-year-old female with past medical history of COPD on home oxygen 1 L at night, hypertension, CAD, A. fib who was sent from clinic for evaluation of shortness of breath. He was admitted for COPD exacerbation and acute on chronic respiratory failure. Chest x-ray was negative for infiltrate. She was managed with breathing treatment with significant improvement. She was maintained on 2 L oxygen via nasal cannula with difficulty weaning off. Her resting RA sat was 91%. Lowest oxygen level while walking 84%. Post recovery 1 minute sats was 94%. Patient will require 2 L with activity. She was discharged in stable condition with plan to follow-up with PCP. Diagnosis: Stroke: No - Discharge Data Discharge Date: 06/16/19 Discharge Disposition: Home, Self-Care 01 Condition: Good - Referral to Home Health Primary Care Physician: PCP Unobtainable - Discharge Diagnosis/Problem(s) (1) COPD exacerbation SNOMED Code(s): 543622066 ICD Code: J44.1 - CHRONIC OBSTRUCTIVE PULMONARY DISEASE W (ACUTE) EXACERBATION Status: Acute (2) HTN (hypertension) SNOMED Code(s): 51649627 ICD Code: I10 - ESSENTIAL (PRIMARY) HYPERTENSION Status: Acute - Patient Summary/Data Consults: Consultations 06/13/19 17:30 Respiratory Care Assess and Treatment [CONS] Routine - Patient Instructions Diet: Heart Healthy Diet Activity: As Tolerated Driving: May Drive Today Showering/Bathing: May Shower Notify Provider of: Fever, Increased Pain, Nausea and/or Vomiting - Discharge Plan *PRESCRIPTION DRUG MONITORING PROGRAM REVIEWED*: Not Applicable *COPY OF PRESCRIPTION DRUG MONITORING REPORT IN PATIENT SHASHI: Not Applicable Prescriptions/Med Rec: Amoxicillin/Clavulanate K [Augmentin 875-125 MG] 1 tab PO BID #10 tablet predniSONE 20 mg PO WITHBREAKFAST #5 tab Home Medications: Home Meds Acetaminophen [Tylenol Extra Strength] 1,000 mg PO Q6HR PRN 02/24/17 [History] Amiodarone [Cordarone] 200 mg PO DAILY 02/24/17 [History] Budesonide/Formoterol Fumarate [Symbicort 80-4.5 MCG] 2 puff INH BID 02/24/17 [ History] Cholecalciferol (Vitamin D3) [Vitamin D3] 2,000 unit PO DAILY 02/24/17 [History] Fish Oil/[place]-3 Fatty Acids [Fish Oil 1,000 MG] 1,000 mg PO DAILY 02/24/17 [ History] Fluticasone Propionate [Flonase] 50 mcg IVET DAILY PRN 02/24/17 [History] Losartan [Cozaar] 25 mg PO DAILY 02/24/17 [History] Multivitamin [Daily Multiple Vitamin] 1 tab PO DAILY 02/24/17 [History] Rivaroxaban [Xarelto] 15 mg PO DAILY 02/24/17 [History] Spironolactone [Aldactone] 25 mg PO DAILY 02/24/17 [History] atenoloL [Atenolol] 75 mg PO DAILY 02/24/17 [History] atorvaSTATin [Lipitor] 20 mg PO DAILY 02/24/17 [History] Albuterol [Proair HFA] 2 puff INH Q6HR PRN 08/16/17 [History] Codeine/Promethazine [Phenergan with Codeine] 5 ml PO Q4HR PRN 08/16/17 [History ] Loratadine 10 mg PO DAILY 08/16/17 [History] Allopurinol [Zyloprim] 100 mg PO DAILY 06/13/19 [History] Ammonium Lactate [Amlactin 12% Lotion] 1 dose TP BID PRN 06/13/19 [History] Furosemide [Lasix] 80 mg PO BID 06/13/19 [History] amLODIPine Besylate [Norvasc] 10 mg PO DAILY 06/13/19 [History] Amoxicillin/Clavulanate K [Augmentin 875-125 MG] 1 tab PO BID #10 tablet [Rx] predniSONE 20 mg PO WITHBREAKFAST #5 tab 06/16/19 [Rx] Oxygen Therapy Mode: Nasal Cannula Patient Handouts: Amoxicillin; Clavulanic Acid tablets, Prednisone delayed- release tablets, Chronic Obstructive Pulmonary Disease, [id number], Hyperglycemia, [id number] - Discharge Summary/Plan Comment DC Time >30 min.: Yes - General Info Date of Service: 06/16/19 Admission Dx/Problem (Free Text: Admission Diagnosis/Problem Admission Diagnosis/Problem COPD, Severe chronic obstructive pulmonary disease Subjective Update: Louann is a 74-year-old female with past medical history of COPD on home oxygen 1 L at night, hypertension, CAD, A. fib who was sent from clinic for evaluation of shortness of breath. She was admitted for COPD exacerbation with acute on chronic respiratory failure. Today she is doing ok but still on 2 L via NC and saturating well. She denies fever, chills. No SOB, chest pain. No wheezing. Functional Status: Reports: Pain Controlled - Review of Systems General: Reports: No Symptoms HEENT: Reports: No Symptoms Pulmonary: Reports: No Symptoms Cardiovascular: Reports: No Symptoms Gastrointestinal: Reports: No Symptoms Genitourinary: Reports: No Symptoms Musculoskeletal: Reports: No Symptoms Skin: Reports: No Symptoms Neurological: Reports: No Symptoms Psychiatric: Reports: No Symptoms - Patient Data Vitals - Most Recent: Last Vital Signs Temp 97.6 F 06/16/19 08:00 Pulse 71 06/16/19 09:14 Resp 20 06/16/19 08:00 BP 115/41 L 06/16/19 09:14 Pulse Ox 93 L 06/16/19 08:00 Weight - Most Recent: 196 lb 12.8 oz I&O - Last 24 hours: Intake & Output 06/15/19 06/16/19 06/16/19 22:59 06:59 14:59 Intake Total 400 Output Total 300 Balance 100 Lab Results - Last 24 hrs: Laboratory Results - last 24 hr 06/15/19 06/15/19 06/15/19 Range/Units 10:16 10:16 11:55 WBC 14.7 H (5.0-10.0) 10^3/uL RBC 3.63 L (4.2-5.4) 10^6/uL Hgb 11.7 L (12.0-16.0) g/dL Hct 35.1 L (37.0-47.0) % MCV 96.7 (80-100) fL MCH 32.2 (27.0-34.0) pg MCHC 33.3 (33.0-35.0) g/dL Plt Count 273 (150-450) 10^3/uL Sodium 131 L (135-145) mmol/L Potassium 3.6 (3.6-5.0) mmol/L Chloride 95 L (101-111) mmol/L Carbon Dioxide 21.0 (21.0-31.0) mmol/L Anion Gap 18.6 BUN 44 H (7-18) mg/dL Creatinine 2.4 H (0.6-1.3) mg/dL Est Cr Clr Drug Dosing 19.33 mL/min Estimated GFR (MDRD) 20 Glucose 408 H* (74-105) mg/dL POC Glucose 343 H (83-110) mg/dl Calcium 8.6 (8.4-10.2) mg/dl Phosphorus 4.1 (2.5-4.6) mg/dL Magnesium 2.0 (1.8-2.5) mg/dL B-Natriuretic Peptide 396 H (0-100) pg/ml 06/15/19 06/15/19 06/16/19 Range/Units 17:06 20:33 07:44 WBC (5.0-10.0) 10^3/uL RBC (4.2-5.4) 10^6/uL Hgb (12.0-16.0) g/dL Hct (37.0-47.0) % MCV (80-100) fL MCH (27.0-34.0) pg MCHC (33.0-35.0) g/dL Plt Count (150-450) 10^3/uL Sodium (135-145) mmol/L Potassium (3.6-5.0) mmol/L Chloride (101-111) mmol/L Carbon Dioxide (21.0-31.0) mmol/L Anion Gap BUN (7-18) mg/dL Creatinine (0.6-1.3) mg/dL Est Cr Clr Drug Dosing mL/min Estimated GFR (MDRD) Glucose (74-105) mg/dL POC Glucose 265 H 289 H 317 H (83-110) mg/dl Calcium (8.4-10.2) mg/dl Phosphorus (2.5-4.6) mg/dL Magnesium (1.8-2.5) mg/dL B-Natriuretic Peptide (0-100) pg/ml 06/16/19 Range/Units 07:50 WBC 12.8 H (5.0-10.0) 10^3/uL RBC 3.30 L (4.2-5.4) 10^6/uL Hgb 10.6 L (12.0-16.0) g/dL Hct 32.0 L (37.0-47.0) % MCV 97.0 (80-100) fL MCH 32.1 (27.0-34.0) pg MCHC 33.1 (33.0-35.0) g/dL Plt Count 244 (150-450) 10^3/uL Sodium (135-145) mmol/L Potassium (3.6-5.0) mmol/L Chloride (101-111) mmol/L Carbon Dioxide (21.0-31.0) mmol/L Anion Gap BUN (7-18) mg/dL Creatinine (0.6-1.3) mg/dL Est Cr Clr Drug Dosing mL/min Estimated GFR (MDRD) Glucose (74-105) mg/dL POC Glucose (83-110) mg/dl Calcium (8.4-10.2) mg/dl Phosphorus (2.5-4.6) mg/dL Magnesium (1.8-2.5) mg/dL B-Natriuretic Peptide (0-100) pg/ml Med Orders - Current: Current Medications Acetaminophen (Tylenol) 650 mg PO Q4H PRN PRN Reason: Pain (Mild 1-3)/fever Albuterol (Proventil Hfa) 0 gm INH Q6H PRN PRN Reason: Wheezing Albuterol/Ipratropium (Duoneb 3.0-0.5 Mg/3 Ml) 3 ml NEB Q4H [facility] Last Admin: 06/16/19 07:23 Dose: 3 ml Allopurinol (Zyloprim) 100 mg PO DAILY [facility] Last Admin: 06/16/19 09:05 Dose: 100 mg Amiodarone HCl (Cordarone) 200 mg PO DAILY [facility] Last Admin: 06/16/19 09:10 Dose: 200 mg Amlodipine Besylate (Norvasc) 10 mg PO DAILY [facility] Last Admin: 06/16/19 09:14 Dose: Not Given Atenolol (Tenormin) 75 mg PO DAILY [facility] Last Admin: 06/16/19 09:14 Dose: Not Given Atorvastatin Calcium (Lipitor) 20 mg PO DAILY [facility] Last Admin: 06/16/19 09:14 Dose: Not Given Docusate Sodium (Colace) 100 mg PO BID PRN PRN Reason: Constipation Last Admin: 06/15/19 21:25 Dose: 100 mg Fluticasone Propionate (Flonase) 0 gm IVET DAILY PRN PRN Reason: Rhinitis Furosemide (Lasix) 80 mg PO BIDDIURETIC [facility] Last Admin: 06/16/19 09:03 Dose: 80 mg Heparin Sodium (Porcine) (Heparin Sodium) 5,000 units SUBCUT Q12HR [facility] Last Admin: 06/16/19 09:14 Dose: Not Given Ceftriaxone Sodium 1 gm/ (Sodium Chloride) 50 mls @ 100 mls/hr IV Q24H [facility] Last Admin: 06/15/19 20:38 Dose: 50 mls/hr Sodium Chloride (Normal Saline) 1,000 mls @ 100 mls/hr IV ASDIRECTED [facility] Last Admin: 06/15/19 07:18 Dose: 100 mls/hr Insulin Human Lispro (Humalog) 0 unit SUBCUT WITHMEALSANDBED [facility]; Protocol Last Admin: 06/16/19 09:30 Dose: 12 units Insulin Human Lispro (Humalog) 5 unit SUBCUT TIDMEALS [facility] Last Admin: 06/16/19 09:29 Dose: 5 units Loratadine (Claritin) 10 mg PO DAILY [facility] Last Admin: 06/16/19 09:13 Dose: Not Given Losartan Potassium (Cozaar) 25 mg PO DAILY [facility] Last Admin: 06/16/19 09:13 Dose: Not Given Magnesium Hydroxide (Milk Of Magnesia) 30 ml PO Q12H PRN PRN Reason: Constipation Methylprednisolone Sodium Succinate (Solu-Medrol) 40 mg IVPUSH Q12H [facility] Last Admin: 06/16/19 09:12 Dose: 40 mg Mometasone Furoate/Formoterol Fumar (Dulera 100-5 Mcg) 2 puff IH BID [facility] Last Admin: 06/16/19 09:19 Dose: 2 puff Ondansetron HCl (Zofran) 4 mg IVPUSH Q6H PRN PRN Reason: Nausea/Vomiting Promethazine HCl/Codeine (Phenergan With Codeine) 5 ml PO Q4HR PRN PRN Reason: Cough Rivaroxaban (Xarelto) 15 mg PO DAILY [facility] Last Admin: 06/16/19 09:15 Dose: Not Given Spironolactone (Aldactone) 25 mg PO DAILY [facility] Last Admin: 06/16/19 09:05 Dose: 25 mg Discontinued Medications Albuterol/Ipratropium (Duoneb 3.0-0.5 Mg/3 Ml) 3 ml NEB Q4H [facility] Last Admin: 06/14/19 09:45 Dose: 3 ml Azithromycin 500 mg/ Sodium (Chloride) 250 mls @ 250 mls/hr IV Q24H [facility] Last Admin: 06/13/19 18:36 Dose: Not Given Ceftriaxone Sodium 1 gm/ (Sodium Chloride) 50 mls @ 100 mls/hr IV Q24H [facility] Last Admin: 06/14/19 06:45 Dose: Not Given Magnesium Sulfate 2 gm/ Premix 50 mls @ 25 mls/hr IV ONETIME ONE Stop: 06/14/19 11:11 Last Admin: 06/14/19 10:17 Dose: 25 mls/hr Insulin Human Regular (Humulin R) 10 unit IV ONETIME ONE Stop: 06/15/19 11:22 Last Admin: 06/15/19 11:33 Dose: 10 units Methylprednisolone Sodium Succinate (Solu-Medrol) 40 mg IVPUSH Q8H [facility] Last Admin: 06/15/19 09:22 Dose: 40 mg - Exam Quality Assessment: Reports: Supplemental Oxygen, DVT Prophylaxis General: Reports: Alert, Oriented HEENT: Reports: Pupils Equal, Pupils Reactive, EOMI, Mucous Membr. Moist/[place] Neck: Reports: Supple Lungs: Reports: Clear to Auscultation, Normal Respiratory Effort Cardiovascular: Reports: Regular Rate, Regular Rhythm GI/Abdominal Exam: Normal Bowel Sounds, Soft, Non-Tender, No Organomegaly, No Distention, No Abnormal Bruit, No Mass, Pelvis Stable (Female) Exam: Normal External Exam, Normal Speculum Exam, Normal Bimanual Exam Rectal (Female) Exam: Normal Exam, Normal Rectal Tone Back Exam: Reports: Normal Inspection, Full Range of Motion Extremities: Normal Inspection, Normal Range of Motion, Non-Tender, No Pedal Edema, Normal Capillary Refill Skin: Reports: Warm, Dry, Intact Wound/Incisions: Reports: Healing Well Neurological: Reports: No New Focal Deficit Psy/Mental Status: Reports: Alert, Normal Affect, Normal Mood
== END 2019-06-16 13:35 | disposition home or self-care (01) ==
LOC: UNDOADMOB 16:09 → DL.MS 16:09 → UNDOADMOB 16:17 → DL.MS 16:17
PROVIDERS: ADMIT Student in an Organized Health Care Education/Training Program; ATTEND Student in an Organized Health Care Education/Training Program
DX: J44.1 Chronic obstructive pulmonary disease with (acute) exacerbation (principal); J96.21 Acute and chronic respiratory failure with hypoxia; I25.10 Atherosclerotic heart disease of native coronary artery without angina pectoris; I48.91 Unspecified atrial fibrillation; I13.0 Hypertensive heart and chronic kidney disease with heart failure and stage 1 through stage 4 chronic kidney disease, or unspecified chronic kidney disease; E11.22 Type 2 diabetes mellitus with diabetic chronic kidney disease; N18.4 Chronic kidney disease, stage 4 (severe); I50.9 Heart failure, unspecified; E78.00 Pure hypercholesterolemia, unspecified; K21.9 Gastro-esophageal reflux disease without esophagitis; E11.65 Type 2 diabetes mellitus with hyperglycemia; R79.89 Other specified abnormal findings of blood chemistry; M19.90 Unspecified osteoarthritis, unspecified site; D72.829 Elevated white blood cell count, unspecified; Z99.81 Dependence on supplemental oxygen; Z79.51 Long term (current) use of inhaled steroids; Z79.01 Long term (current) use of anticoagulants; Z79.4 Long term (current) use of insulin; Z79.899 Other long term (current) drug therapy; Z87.891 Personal history of nicotine dependence
CPT/HCPCS: 36415; 71045; 80048; 80053; 82962; 83735; 83880; 84100; 85025; 85027; 94618; 94640; 96361; 96365; 96366; 96367; 96375; 96376; A9270; G0378; G0379; J0696; J1815; J2920; J3475; J7030; J7050; J7620-GY

== ENCOUNTER 2020-02-18 07:32 | Day surgery (SDC) | payer MEDICARE, OTHER ==
[~2020-02-18 07:32] MED LIST: Acetaminophen 325 MG Tab PO PRN; Cataract Ophth Solution EYELF ONE; Moxifloxacin 0.5% Ophth Soln 3 ML Bottle EYELF ONE; Ondansetron 4 MG/2 ML SDV IVPUSH PRN; Phenylephrine 10% Ophth Soln 5 ML Bot EYELF ONE; Phenylephrine 10% Ophth Soln 5 ML Bot EYELF PRN; Povidone-Iodine 5% Sterile Ophth Soln 30 ML Bottle EYELF ONE; Proparacaine 0.5% Ophth Soln 15 ML Bottle EYELF ONE; Sodium Chloride 0.9% 10 ML Syringe FLUSH PRN; Timolol Maleate 0.5% Ophth Soln 5 ML Bottle EYELF ONE; Tropicamide 1% Ophth Soln 15 ML Bottle EYELF ONE
[2020-02-18] MEDS ORDERED: Dexamethasone 4 MG/ML SDV IV ONE (07:33)
[2020-02-18] MEDS ORDERED: Sodium Chloride 0.9% 10 ML Syringe IV ONE (07:33)
[2020-02-18] MEDS ORDERED: Midazolam 1 MG/ML 2 ML SDV IV ONE (07:33)
[2020-02-18] MEDS ORDERED: Povidone-Iodine 5% Sterile Ophth Soln 30 ML Bottle EYELF ONE (09:07)
[2020-02-18] MEDS ORDERED: Lidocaine 1% 30 ML SDV ONE (09:07)
[2020-02-18] MEDS ORDERED: Tetracaine HCl/PF 0.5% 4 ML Bottle EYELF ONE (09:07)
[2020-02-18] MEDS ORDERED: Apraclonidine 0.5% Ophth Soln 5 ML Bot EYELF ONE (09:08)
[2020-02-18] MEDS ORDERED: Diclofenac Sodium 0.1% Ophth Soln 5 ML Bottle EYELF ONE (09:08)
[2020-02-18] MEDS ORDERED: Vancomycin 500 MG SDV EYELF ONE (09:08)
[2020-02-18] MEDS ORDERED: Dexamethasone/Neomycin/Polymyxin B Ophth Oint 3.5 GM Tube EYELF ONE (09:08)
[2020-02-18] MEDS ORDERED: Balanced Salt Solution Ophth Irrig 500 ML Bottle IOCULAR ONE (09:08)
[2020-02-18] MEDS ORDERED: Chondroitin Sulfate/Hyaluronate Sodium Ophth Inj 0.75 ML Syringe EYELF ONE (09:08)
--- NOTE | 2020-02-19 10:19 | OR ---
DATE: 02/18/2020 PREOPERATIVE DIAGNOSIS: Visually significant mixed cataract, left eye. POSTOPERATIVE DIAGNOSIS: Visually significant mixed cataract, left eye. PROCEDURE: Extracapsular cataract extraction with intraocular lens implant, left eye. ANESTHESIA: Topical/local MAC. COMPLICATIONS: None. INDICATION: Ms. Cardenas was seen in the clinic with complaints of blurred vision. Examination revealed visually significant mixed cataract. I explained options, offered cataract surgery, and I explained risks preoperatively including, but not limited to, infection, retinal detachment, loss of vision, need for additional surgery, lens or implant dislocation, and risks associated with anesthesia including loss of life. We discussed implant options. She has requested a multifocal implant. I did explain the increased potential for glare, halo, and dysphotopsia. I also explained that she may still require glasses for some activities. She voiced understanding, wished to proceed. OPERATIVE DESCRIPTION: After informed consent was obtained and the risks, benefits, and alternatives were explained, the patient was brought to the operative suite and topical anesthesia was administered. The patient was then prepped and draped in the sterile fashion and attention was placed on the left eye. A sterile lid speculum was placed into the left eye to allow operative exposure. A full-thickness paracentesis was made in the temporal portion of the operative eye. Preservative-free lidocaine 0.1 mL was injected into the anterior chamber followed by viscoelastic. A full-thickness corneal incision was then made into the anterior chamber. A bent needle cystotome was used to create a small lise in the anterior capsule. The capsulorrhexis forceps was then used to create a 360-degree curvilinear capsulorrhexis. The nucleus was then removed using a phacoemulsification handpiece and the remaining cortical material was then removed with irrigation and aspiration handpiece. Following removal of the cortical material, the capsular bag was then inspected and noted to be free of any holes or tears. Viscoelastic was then injected into the capsular bag and the intraocular lens was inserted into the capsular bag. The viscoelastic material was then removed from both the anterior and posterior chambers and from behind the IOL. The lens and capsular bag were then reinspected. The IOL was well centered and the capsular bag intact. The wound and paracentesis sites were inspected and hydrated with balanced saline solution. Both were found to be self- sealing. The intraocular pressure was assessed digitally and found to be within normal range. A good red reflex was noted at the completion of the procedure. No complications occurred during the operation. At the completion of the procedure, Maxitrol, Voltaren, and Iopidine drops were placed into the operative eye. A sterile eye shield was placed over the operative eye and the patient was transported to the postoperative recovery area having tolerated the procedure well. Postoperative instructions were given along with a postoperative appointment. The patient was advised to call with any questions or concerns. [facility] /[id number]
== END 2020-02-18 10:21 | disposition home or self-care (01) ==
LOC: DL.SDS 07:32
PROVIDERS: ATTEND Ophthalmology
DX: E11.36 Type 2 diabetes mellitus with diabetic cataract (principal); H25.813 Combined forms of age-related cataract, bilateral; I50.9 Heart failure, unspecified; N18.30 Chronic kidney disease, stage 3 unspecified; J44.9 Chronic obstructive pulmonary disease, unspecified; E11.22 Type 2 diabetes mellitus with diabetic chronic kidney disease; I25.10 Atherosclerotic heart disease of native coronary artery without angina pectoris; E78.5 Hyperlipidemia, unspecified; I13.0 Hypertensive heart and chronic kidney disease with heart failure and stage 1 through stage 4 chronic kidney disease, or unspecified chronic kidney disease; Z87.891 Personal history of nicotine dependence; Z79.899 Other long term (current) drug therapy
CPT/HCPCS: 00142; 66984; A9270; J1100; J2001; J2250; J3370; V2632

== ENCOUNTER 2020-02-25 07:23 | Day surgery (SDC) | payer MEDICARE, OTHER ==
[2020-02-25] MEDS ORDERED: Midazolam 1 MG/ML 2 ML SDV IV ONE (07:24)
[2020-02-25] MEDS ORDERED: Sodium Chloride 0.9% 10 ML Syringe IV ONE (07:24)
[2020-02-25] MEDS ORDERED: Dexamethasone 4 MG/ML SDV IV ONE (07:24)
[2020-02-25] MEDS ORDERED: Sodium Chloride 0.9% 10 ML Syringe FLUSH PRN (07:30)
[2020-02-25] MEDS ORDERED: Proparacaine 0.5% Ophth Soln 15 ML Bottle EYERT ONE (07:30)
[2020-02-25] MEDS ORDERED: Cataract Ophth Solution EYERT ONE (07:30)
[2020-02-25] MEDS ORDERED: Ondansetron 4 MG/2 ML SDV IVPUSH PRN (07:30)
[2020-02-25] MEDS ORDERED: Timolol Maleate 0.5% Ophth Soln 5 ML Bottle EYERT ONE (07:30)
[2020-02-25] MEDS ORDERED: Phenylephrine 10% Ophth Soln 5 ML Bot EYERT ONE (07:30)
[2020-02-25] MEDS ORDERED: Tropicamide 1% Ophth Soln 15 ML Bottle EYERT ONE (07:30)
[2020-02-25] MEDS ORDERED: Phenylephrine 10% Ophth Soln 5 ML Bot EYERT PRN (07:30)
[2020-02-25] MEDS ORDERED: Povidone-Iodine 5% Sterile Ophth Soln 30 ML Bottle EYERT ONE ×2 (07:30→08:53)
[2020-02-25] MEDS ORDERED: Acetaminophen 325 MG Tab PO PRN (07:30)
[2020-02-25] MEDS ORDERED: Moxifloxacin 0.5% Ophth Soln 3 ML Bottle EYERT ONE (07:30)
[2020-02-25] MEDS ORDERED: Lidocaine 1% 30 ML SDV ONE (08:52)
[2020-02-25] MEDS ORDERED: Tetracaine HCl/PF 0.5% 4 ML Bottle EYERT ONE (08:52)
[2020-02-25] MEDS ORDERED: Apraclonidine 0.5% Ophth Soln 5 ML Bot EYERT ONE (08:53)
[2020-02-25] MEDS ORDERED: Dexamethasone/Neomycin/Polymyxin B Ophth Oint 3.5 GM Tube EYERT ONE (08:54)
[2020-02-25] MEDS ORDERED: Balanced Salt Solution Ophth Irrig 500 ML Bottle IOCULAR ONE (08:54)
[2020-02-25] MEDS ORDERED: Diclofenac Sodium 0.1% Ophth Soln 5 ML Bottle EYERT ONE (08:54)
[2020-02-25] MEDS ORDERED: Chondroitin Sulfate/Hyaluronate Sodium Ophth Inj 0.75 ML Syringe EYERT ONE (08:55)
[2020-02-25] MEDS ORDERED: Vancomycin 500 MG SDV EYERT ONE (08:55)
--- NOTE | 2020-02-25 16:33 | OR ---
DATE: 02/25/2020 PREOPERATIVE DIAGNOSIS: Visually significant mixed cataract, right eye. POSTOPERATIVE DIAGNOSIS: Visually significant mixed cataract, right eye. PROCEDURE: Extracapsular cataract extraction with intraocular lens implant, right eye. ANESTHESIA: Topical/local MAC. COMPLICATIONS: None. INDICATION: Ms. Cardenas was seen in the clinic. She is unhappy with her vision noticing a progressive change. 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 I explained options, offered cataract surgery, and I explained risks, including, but not limited to, infection, retinal detachment, loss of vision, need for additional surgery, and risks associated with anesthesia. I also explained risks associated with pseudoexfoliation including potential for lens or implant dislocation. We discussed implant options. She has requested a multifocal implant. She understands the increased potential for glare, halo, and dysphotopsia. OPERATIVE DESCRIPTION: After informed consent was obtained and the risks, benefits, and alternatives were explained, the patient was brought to the operative suite and topical anesthesia was administered. The patient was then prepped and draped in the sterile fashion and attention was placed on the right eye. A sterile lid speculum was placed into the right eye to allow operative exposure. A full-thickness paracentesis was made in the temporal portion of the operative eye. Preservative-free lidocaine 0.1 mL was injected into the anterior chamber followed by viscoelastic. A full-thickness corneal incision was then made into the anterior chamber. A bent needle cystotome was used to create a small lise in the anterior capsule. The capsulorrhexis forceps was then used to create a 360-degree curvilinear capsulorrhexis. The nucleus was then removed using a phacoemulsification handpiece and the remaining cortical material was then removed with irrigation and aspiration handpiece. Following removal of the cortical material, the capsular bag was then inspected and noted to be free of any holes or tears. Viscoelastic was then injected into the capsular bag and the intraocular lens was inserted into the capsular bag. The viscoelastic material was then removed from both the anterior and posterior chambers and from behind the IOL. The lens and capsular bag were then reinspected. The IOL was well centered and the capsular bag intact. The wound and paracentesis sites were inspected and hydrated with balanced saline solution. Both were found to be self- sealing. The intraocular pressure was assessed digitally and found to be within normal range. A good red reflex was noted at the completion of the procedure. No complications occurred during the operation. At the completion of the procedure, Maxitrol, Voltaren, and Iopidine drops were placed into the operative eye. A sterile eye shield was placed over the operative eye and the patient was transported to the postoperative recovery area having tolerated the procedure well. Postoperative instructions were given along with a postoperative appointment. The patient was advised to call with any questions or concerns. [facility] /[id number]
== END 2020-02-25 10:07 | disposition home or self-care (01) ==
LOC: DL.SDS 07:23
PROVIDERS: ATTEND Ophthalmology
DX: E11.36 Type 2 diabetes mellitus with diabetic cataract (principal); H25.811 Combined forms of age-related cataract, right eye; I13.0 Hypertensive heart and chronic kidney disease with heart failure and stage 1 through stage 4 chronic kidney disease, or unspecified chronic kidney disease; I50.9 Heart failure, unspecified; J44.9 Chronic obstructive pulmonary disease, unspecified; I25.10 Atherosclerotic heart disease of native coronary artery without angina pectoris; E78.5 Hyperlipidemia, unspecified; E11.22 Type 2 diabetes mellitus with diabetic chronic kidney disease; E66.9 Obesity, unspecified; Z87.891 Personal history of nicotine dependence; Z79.899 Other long term (current) drug therapy; Z68.29 Body mass index [BMI] 29.0-29.9, adult; N18.30 Chronic kidney disease, stage 3 unspecified
CPT/HCPCS: 00142; 66984; A9270; J1100; J2001; J2250; J3370; V2632